=== PATIENT | female | born 1975 ===

== ENCOUNTER 2017-06-02 12:59 | Inpatient (IN) | payer OTHER ==
[2017-06-02 13:11] VITALS: BMI 46.6
[2017-06-02] MEDS ORDERED: Sodium Chloride 0.9% 500 ML IV ONE (13:50)
--- NOTE | 2017-06-02 14:19 | RAD ---
Chest x-ray two views History: Cough. Comparison: None available. Findings: Rounded somewhat masslike opacity in the right infrahilar region which may represent focal infiltrate however underlying lesion cannot entirely be excluded. Posttreatment interval followup would be helpful to ensure resolution. Diffuse increased interstitial lung markings which may represent underlying infiltrate and or edema. Few scattered nodular densities in the mid to lower lung zones bilaterally. Mild cardiomegaly. Tortuous aorta. Right hilar prominence. Impression: Rounded somewhat masslike opacity in the right infrahilar region which may represent focal infiltrate however underlying lesion cannot entirely be excluded. Posttreatment interval followup would be helpful to ensure resolution. Diffuse increased interstitial lung markings which may represent underlying infiltrate and or edema. Few scattered nodular densities in the mid to lower lung zones bilaterally. Mild cardiomegaly. Tortuous aorta. Right hilar prominence.
[2017-06-02 14:34] LABS: BASO % 0.4 % (0.0-2.0); EOS # 0.1 K/uL (0.0-0.7); EOS % 1.5 % (0.0-4.0); HEMOGLOBIN 10.7 g/dL (11.0-16.0); LYMPH # 0.5 K/uL (1.0-4.3); LYMPH % 7.2 % (20.0-40.0); MEAN CELL VOLUME 79.3 fL (81.0-99.0); MEAN CORPUSCULAR HEMOGLOBIN 25.4 pg (27.0-31.0); MEAN CORPUSCULAR HGB CONC 32.1 g/dL (33.0-37.0); MEAN PLATELET VOLUME 10.6 fL (7.2-11.7); MONO # 0.5 K/uL (0.0-0.8); MONO % 6.4 % (0.0-10.0); NEUT # 6.3 K/uL (1.8-7.0); NEUT % 84.5 % (50.0-75.0); PLATELET COUNT 156 K/uL (130-400); RBC 4.21 Mil/uL (3.80-5.20); WHITE BLOOD COUNT 7.4 K/uL (4.8-10.8)
[2017-06-02 14:47] LABS: ALB/GLOB RATIO 1.1 (1.0-2.1); ALBUMIN 3.9 g/dL (3.5-5.0); ALT/SGPT 17 U/L (9-52); AST/SGOT 26 U/L (14-36); BLOOD UREA NITROGEN 9 mg/dL (7-17); CALCIUM 8.5 mg/dl (8.6-10.4); GFR AFRICAN-AMERICAN > 60; GFR NON-AFRICAN AMERICAN > 60
[2017-06-02 14:58] LABS: B-TYPE NATRIURETIC PEPTIDE 2550 pg/mL (0-450)
[2017-06-02 15:25] LABS: BANDS 12 % (0-2); BASOPHIL 1 % (0-2); EOSINOPHIL 3 % (0-4); LYMPHOCYTE 7 % (20-40); TOTAL CELLS COUNTED 100
[2017-06-02 15:26] LABS: ANISOCYTOSIS SLIGHT; HYPOCHROMIC SLIGHT; LARGE PLATELETS PRESENT; MONOCYTE 5 % (0-10); NEUTROPHIL 72 % (50-75); PLATELET ESTIMATE NORMAL (NORMAL); POIKILOCYTOSIS SLIGHT
[2017-06-02 16:19] LABS: SQUAMOUS EPITHIAL 6 /hpf (0-5); URINE BACTERIA RARE (<OCC); URINE BILIRUBIN NEGATIVE (NEGATIVE); URINE BLOOD 1+ (NEGATIVE); URINE CLARITY Hazy (Clear); URINE COLOR Straw (YELLOW); URINE GLUCOSE (UA) NORMAL (Normal); URINE LEUKOCYTE ESTERASE 2+ Leu/uL (Negative); URINE PROTEIN NEGATIVE (NEGATIVE); URINE UROBILINOGEN NORMAL mg/dL (0.2-1.0)
[2017-06-02 16:23] LABS: HCG,QUALITATIVE URINE NEGATIVE (NEGATIVE)
--- NOTE | 2017-06-02 17:58 | CT ---
PROCEDURE: CT scan chest dated 06/02/2017 HISTORY: Fever & cough. PNA vs. CHF vs. mass on CXR. COMPARISON: Comparison made with prior chest radiograph obtained earlier same day TECHNIQUE: Contiguous axial images were obtained through the chest without intravenous contrast enhancement. Sagittal and coronal reconstructions were performed. Radiation dose (DLP): 912.56 mGy-cm. This CT exam was performed using one or more of the following dose reduction techniques: Automated exposure control, adjustment of the mA and/or kV according to patient size, and/or use of iterative reconstruction technique. FINDINGS: LUNGS: The current study reveals diffuse ground-glass opacities with increased interstitial markings likely representing pulmonary edema. There is a localized masslike density in the medial aspect right middle lobe of bordering abutting the right cardiac border is felt to represent on localized atelectasis and presumably accounts for previously noted masslike opacity seen on recent chest radiograph. Follow-up CT scan at interval recommended to assess resolution as the possibility of a small underlying mass lesion cannot be completely excluded. MEDIASTINUM: Heart is enlarged. No significant pericardial effusion. There is mild dilatation of the ascending thoracic aorta measuring nearly 3.9 cm in transverse dimension. Descending thoracic aorta measures approximately 2.3 cm. Pulmonary trunk measures approximately 3.47 cm. There does appear to be multiple of mediastinal lymph nodes which are poorly defined on and are nonspecific. Evaluation for hilar adenopathy is limited due to the lack of circulating intravenous contrast material. Central airways are midline and patent. No large central endoluminal lesions . There is a small hiatal hernia with mild localize wall thickening of the distal esophagus likely secondary to protrusion gastric mucosa. Possibility of esophagitis not excluded. PLEURA: No evidence of pleural effusion or pneumothorax. BONES: Minor multilevel degenerative spondylosis of the thoracic spine. There are no acute compression fractures no retropulsed fragments UPPER ABDOMEN: There is a small radiopaque density adjacent to the anterior superior margin of the surface of the liver that could represent a metallic clip ; clinical correlation recommended. The remaining visualized upper abdominal structures otherwise appear grossly unremarkable. OTHER FINDINGS: None. IMPRESSION: Findings consistent with pulmonary edema/ CHF. Masslike density in the medial aspect right middle lobe region probably represents chronic atelectasis. Follow-up CT scan at interval recommended to assess resolution as the possibility of underlying mass lesion cannot be completely excluded. Cardiomegaly.
[2017-06-02] MEDS ORDERED: cefTRIAXone IV 1 gm in Dextros 50 ML IVPB ONE ×2 (18:22→18:47)
[2017-06-02] MEDS ORDERED: Azithromycin 500mg/250ML NS 500 MG/250 ML BAG IVPB STA (18:23)
--- NOTE | 2017-06-02 18:46 | C.PDOC ---
Time Seen by Provider: 06/02/17 13:33 Chief Complaint (Nursing): Flu-like Symptoms History Per: Patient, Family Onset/Duration Of Symptoms: Days (1) Current Symptoms Are (Timing): Still Present Associated Symptoms: Fever, Sore Throat, Cough, Myalgias Severity: Moderate Additional History Per: Prior Records Past Medical History Reviewed: Historical Data, Nursing Documentation, Vital Signs Vital Signs: Last Vital Signs Temp 99.2 F 06/02/17 18:20 Pulse 76 06/02/17 18:20 Resp 20 06/02/17 18:20 BP 103/65 06/02/17 18:20 Pulse Ox 96 06/02/17 18:20 - Medical History Other PMH: "Heart problem after having a baby" Surgical History: Tonsillectomy Family History: States: Unknown Family Hx - Social History Hx Tobacco Use: No Hx Alcohol Use: No Hx Substance Use: No - Immunization History Hx Tetanus Toxoid Vaccination: No Hx Influenza Vaccination: No Hx Pneumococcal Vaccination: No Review Of Systems Except As Marked, All Systems Reviewed And Found Negative. Constitutional: Positive for: Fever, Weakness ENT: Positive for: Throat Pain Cardiovascular: Positive for: Chest Pain Respiratory: Positive for: Cough, Shortness of Breath. Negative for: Hemoptysis Gastrointestinal: Negative for: Abdominal Pain Genitourinary: Negative for: Dysuria Musculoskeletal: Negative for: Neck Pain Skin: Negative for: Rash Neurological: Negative for: Weakness, Numbness, Seizures, Altered Mental Status Physical Exam - Physical Exam Appears: No Acute Distress, Other (Uncomfortable) Skin: Normal Color, Warm, Dry Head: Atraumatic, Normacephalic Eye(s): bilateral: PERRL, EOMI Throat: Erythema, No Exudate, No Drooling, No Mass Neck: Normal ROM, Supple Cardiovascular: Rhythm Regular, Murmur Respiratory: No Accessory Muscle Use, Rales (at bases) Gastrointestinal/Abdominal: Soft, No Tenderness Back: No CVA Tenderness Extremity: Normal ROM, Pedal Edema, No Calf Tenderness Neurological/Psych: Oriented x3, Normal Speech, Normal Motor, Normal Sensation ED Course And Treatment - Laboratory Results Result Diagrams: 06/02/17 14:30 06/02/17 14:30 Lab Interpretation: Abnormal Interpretation Of Abnormal: Bandemia. Positive Flu A. Elevated BNP. ECG: Interpreted By Me, Viewed By Me ECG Rhythm: Sinus Rhythm, Nonspecific Changes ECG Interpretation: Abnormal Rate From EC O2 Sat by Pulse Oximetry: 96 Pulse Ox Interpretation: Normal - Radiology CXR: Viewed By Me, Read By Radiologist CXR Interpretation: Yes: Infiltrates (?), Cardiomegaly - CT Scan/US CT of chest Other Rad Studies (CT/US): Read By Radiologist, Radiology Report Reviewed CT/US Interpretation: IMPRESSION: Findings consistent with pulmonary edema/ CHF. Masslike density in the medial aspect right middle lobe region probably represents chronic atelectasis. Follow-up CT scan at interval recommended to assess resolution as the possibility of underlying mass lesion cannot be completely excluded. Cardiomegaly. Progress - Interventions Interventions:: Observation, Intravenous fluid, Oxygen - Medications Administered Oral: Acetaminophen, NSAID Intravenous: Other (Abx) - Data Reviewed Data Reviewed: Lab, Diagnostic imaging, EKG, Old records - Patient Status Patient status: Partially improved - Continuity of Care Discussed patient case with:: Patient, Family-HIPPA compliant, ED Nurse, Covering for PMD - Patient Plan Patient Plan: Admission, Telemetry Disposition Discussed With : Suad Smart Comment: She accepted pt on hospitalist service. Doctor Will See Patient In The: Hospital Counseled Patient/Family Regarding: Studies Performed, Diagnosis - Disposition Disposition: HOSPITALIZED Disposition Time: 18:49 Condition: GUARDED - Clinical Impression Clinical Impression: Influenza A, Pulmonary edema
--- NOTE | 2017-06-02 19:16 | CP.PCM.HP ---
<Omar Santiago - Last Filed: 06/02/17 20:28> History of Present Illness - History of Present Illness History of Present Illness: No advanced directives Healthcare proxy: Sky Khan () [phone] PGY-1 H&P for Dr. Smart CC: Fever, malaise, dyspnea This is a 42 year old female with PMHx cardiomegaly s/p 10 years ago who presents with fevers, malaise, and shortness of breath. Patient states that this began yesterday as she was picking up her daughter from school. At the time , she just felt unwell. However, at 1 AM this morning, the patient woke up with fever, sore throat, and shortness of breath. Patient tried using an albuterol inhaler once without any relief. Patient has also tried Motrin without relief of fever. Patient complaining of diaphoresis as well. Patient is able to walk 5 blocks before getting short of breath and sleeps with 2 pillows at night. Of note, patient's was sick early this week with similar symptoms. Patient did not get the flu shot this year. PMHx: cardiomegaly s/p PSHx: Fibroidectomy, hernia repair, tonsillectomy Allergies: NKDA Social: Denies tobacco, alcohol, drugs. Lives with , daughter, and grandson. Family Hx: Father passed at age 72. Mother passed at young age of uterine cancer. PMD: Dr. Lora Oden meds: Ventolin inhaler, Theraflu syrup Present on Admission - Present on Admission Any Indicators Present on Admission: No Review of Systems - Constitutional Constitutional: Chills, Fever - EENT Eyes: absent: Change in Vision Ears: absent: Decreased Hearing Nose/Mouth/Throat: absent: Nasal Congestion - Cardiovascular Cardiovascular: Chest Pain (pleuritic) - Respiratory Respiratory: Cough (dry), Dyspnea - Gastrointestinal Gastrointestinal: Abdominal Pain (with movement). absent: Constipation, Diarrhea, Nausea, Vomiting - Genitourinary Genitourinary: Other (itching with urination). absent: Dysuria - Musculoskeletal Musculoskeletal: absent: Back Pain - Integumentary Integumentary: Other (diaphoresis). absent: Rash - Neurological Neurological: absent: Dizziness - Psychiatric Psychiatric: absent: Anxiety - Endocrine Endocrine: Fatigue Past Patient History - Past Social History Smoking Status: Never Smoked - PSYCHIATRIC Hx Substance Use: No - SURGICAL HISTORY Hx Tonsillectomy: Yes - ANESTHESIA Hx Anesthesia: Yes Hx Anesthesia Reactions: No Meds Allergies/Adverse Reactions: Allergies Allergy/AdvReac Type Severity Reaction Status Date / Time No Known Allergies Allergy Verified 06/02/17 13:11 Physical Exam - Constitutional Appears: Other (ill appearing with diaphoresis) - Head Exam Head Exam: ATRAUMATIC, NORMOCEPHALIC - Eye Exam Eye Exam: EOMI, PERRL - ENT Exam ENT Exam: Mucous Membranes Moist - Respiratory Exam Respiratory Exam: Rales (bilateral), Wheezes (anterior wheezing). absent: Rhonchi Additional comments: Coarse breath sounds bilaterally - Cardiovascular Exam Cardiovascular Exam: Tachycardia, REGULAR RHYTHM, +S1, +S2, Systolic Murmur ( loudest over pulmonic region). absent: JVD Additional comments: Hepatojugular reflex - GI/Abdominal Exam GI & Abdominal Exam: Hernia (reducible umbilical hernia), Normal Bowel Sounds, Soft. absent: Distended, Tenderness Additional comments: obese body habitus - Extremities Exam Extremities exam: Positive for: pedal edema (trace bilateral non-pitting) - Neurological Exam Neurological exam: Alert, Oriented x3 - Psychiatric Exam Psychiatric exam: Normal Affect, Normal Mood - Skin Skin Exam: Diaphoretic, Warm Results - Vital Signs Recent Vital Signs: Last Vital Signs Temp 99.2 F 06/02/17 18:20 Pulse 76 06/02/17 18:20 Resp 20 06/02/17 18:20 BP 103/65 06/02/17 18:20 Pulse Ox 96 06/02/17 18:50 - Labs Result Diagrams: 06/02/17 14:30 06/02/17 14:30 Labs: Laboratory Results - last 24 hr 06/02/17 06/02/17 06/02/17 13:50 14:30 14:30 WBC 7.4 RBC 4.21 Hgb 10.7 L Hct 33.4 L MCV 79.3 L MCH 25.4 L MCHC 32.1 L RDW 14.0 Plt Count 156 MPV 10.6 Neut % (Auto) 84.5 H Lymph % (Auto) 7.2 L [place] % (Auto) 6.4 Eos % (Auto) 1.5 Baso % (Auto) 0.4 Neut # (Auto) 6.3 Lymph # (Auto) 0.5 L [place] # (Auto) 0.5 Eos # (Auto) 0.1 Baso # (Auto) 0.0 Neutrophils % (Manual) 72 Band Neutrophils % 12 H* Lymphocytes % (Manual) 7 L Monocytes % (Manual) 5 Eosinophils % (Manual) 3 Basophils % (Manual) 1 Platelet Estimate Normal Large Platelets Present Hypochromasia (manual) Slight Poikilocytosis (manual Slight Anisocytosis (manual) Slight Sodium 139 Potassium 3.8 Chloride 103 Carbon Dioxide 22 Anion Gap 18 BUN 9 Creatinine 0.8 Est GFR ( Amer) > 60 Est GFR (Non-Af Amer) > 60 Random Glucose 90 Calcium 8.5 L Total Bilirubin 0.7 AST 26 ALT 17 Alkaline Phosphatase 79 Troponin I 0.0610 NT-Pro-B Natriuret Pep 2550 H Total Protein 7.6 Albumin 3.9 Globulin 3.7 Albumin/Globulin Ratio 1.1 Urine Color Urine Clarity Urine pH Ur Specific [place] Urine Protein Urine Glucose (UA) Urine Ketones Urine Blood Urine Nitrate Urine Bilirubin Urine Urobilinogen Ur Leukocyte Esterase Urine WBC (Auto) Urine RBC (Auto) Ur Squamous Epith Cells Urine Bacteria Urine HCG, Qual Influenza Typ A,B (EIA) Pos for influenza a H 06/02/17 15:37 WBC RBC Hgb Hct MCV MCH MCHC RDW Plt Count MPV Neut % (Auto) Lymph % (Auto) [place] % (Auto) Eos % (Auto) Baso % (Auto) Neut # (Auto) Lymph # (Auto) [place] # (Auto) Eos # (Auto) Baso # (Auto) Neutrophils % (Manual) Band Neutrophils % Lymphocytes % (Manual) Monocytes % (Manual) Eosinophils % (Manual) Basophils % (Manual) Platelet Estimate Large Platelets Hypochromasia (manual) Poikilocytosis (manual Anisocytosis (manual) Sodium Potassium Chloride Carbon Dioxide Anion Gap BUN Creatinine Est GFR ( Amer) Est GFR (Non-Af Amer) Random Glucose Calcium Total Bilirubin AST ALT Alkaline Phosphatase Troponin I NT-Pro-B Natriuret Pep Total Protein Albumin Globulin Albumin/Globulin Ratio Urine Color Straw Urine Clarity Hazy Urine pH 5.0 Ur Specific [place] 1.012 Urine Protein Negative Urine Glucose (UA) Normal Urine Ketones Negative Urine Blood 1+ H Urine Nitrate Negative Urine Bilirubin Negative Urine Urobilinogen Normal Ur Leukocyte Esterase 2+ H Urine WBC (Auto) 13 H Urine RBC (Auto) 2 Ur Squamous Epith Cells 6 H Urine Bacteria Rare Urine HCG, Qual Negative Influenza Typ A,B (EIA) Assessment & Plan - Assessment and Plan (Free Text) Plan: Cardiomegaly with possible CHF considering pulmonary edema on CT imaging EKG shows sinus tachycardia with ST depressions in V4-V6 with T wave inversions f/u LESLEY x2 along with EKG f/u echo f/u lipid panel f/u hemoglobin A1c f/u thyroid studies Cardiology Consult Dr. Byrd, help appreciated Critical Care Consult, Dr. Aguirre, help appreciated Patient given 10 mg IV Lasix Influenza Flu positive Received one dose of Tamiflu in ED Tamiflu 75 mg PO BID Isolation ordered Pneumonia Chest CT: * Findings consistent with pulmonary edema/ CHF. Mass-like density in the medial aspect right middle lobe region probably represents chronic atelectasis. Follow-up CT scan at interval recommended to assess resolution as the possibility of underlying mass lesion cannot be completely excluded. Given Azithromycin and Rocephin in the ED Vancomycin 1 gm Q12H Zosyn 3.375 gm Q6H f/u blood cultures f/u procalcitonin Duoneb Q4 prn O2 via cannula ID consult, Dr. Baez, help appreciated Pulm consult, Dr. Cook, help appreciated UTI 2+ leuk esterase and symptomatic f/u urine cultures Vancomycin 1 gm Q12H Zosyn 3.375 gm Q6H ID consult, Dr. Baez, help appreciated Prophylaxis Heart Healthy Diet with fluid restriction Heparin SC Q12H Discussed with Dr. Berry Santiago PGY-1 <Suad Smart V - Last Filed: 06/03/17 23:19> Results - Vital Signs Recent Vital Signs: Last Vital Signs Temp 98.9 F 06/03/17 21:17 Pulse 78 06/03/17 16:00 Resp 20 06/03/17 15:00 BP 135/77 06/03/17 15:00 Pulse Ox 96 06/03/17 15:00 - Labs Result Diagrams: 06/03/17 07:20 06/03/17 07:20 Labs: Laboratory Results - last 24 hr 06/03/17 06/03/17 06/03/17 02:51 07:20 07:20 WBC RBC Hgb Hct MCV MCH MCHC RDW Plt Count MPV Neut % (Auto) Lymph % (Auto) [place] % (Auto) Eos % (Auto) Baso % (Auto) Neut # (Auto) Lymph # (Auto) [place] # (Auto) Eos # (Auto) Baso # (Auto) Sodium 139 Potassium 3.6 Chloride 105 Carbon Dioxide 21 L Anion Gap 17 BUN 9 Creatinine 0.6 L Est GFR ( Amer) > 60 Est GFR (Non-Af Amer) > 60 Random Glucose 83 Hemoglobin A1c 5.8 Calcium 8.1 L Phosphorus 2.6 Magnesium 1.7 Iron TIBC % Saturation Ferritin Total Bilirubin 0.6 AST 29 ALT 24 Alkaline Phosphatase 68 Total Creatine Kinase 121 CK-MB (Mass) 3.24 Troponin I 0.0770 NT-Pro-B Natriuret Pep Total Protein 6.9 Albumin 3.5 Globulin 3.4 Albumin/Globulin Ratio 1.0 Triglycerides 53 Cholesterol 117 LDL Cholesterol Direct 63 HDL Cholesterol 39 Procalcitonin Free T4 TSH 3rd Generation 0.91 06/03/17 06/03/17 06/03/17 07:20 07:20 07:20 WBC 6.4 RBC 3.86 Hgb 10.0 L Hct 30.5 L MCV 79.1 L MCH 26.0 L MCHC 32.9 L RDW 14.0 Plt Count 140 MPV 11.0 Neut % (Auto) 76.3 H Lymph % (Auto) 13.7 L [place] % (Auto) 9.1 Eos % (Auto) 0.3 Baso % (Auto) 0.6 Neut # (Auto) 4.9 Lymph # (Auto) 0.9 L [place] # (Auto) 0.6 Eos # (Auto) 0.0 Baso # (Auto) 0.0 Sodium Potassium Chloride Carbon Dioxide Anion Gap BUN Creatinine Est GFR ( Amer) Est GFR (Non-Af Amer) Random Glucose Hemoglobin A1c Calcium Phosphorus Magnesium Iron TIBC % Saturation Ferritin Total Bilirubin AST ALT Alkaline Phosphatase Total Creatine Kinase CK-MB (Mass) Troponin I NT-Pro-B Natriuret Pep Total Protein Albumin Globulin Albumin/Globulin Ratio Triglycerides Cholesterol LDL Cholesterol Direct HDL Cholesterol Procalcitonin 0.05 L Free T4 1.21 TSH 3rd Generation 06/03/17 06/03/17 06/03/17 13:32 19:32 19:32 WBC RBC Hgb Hct MCV MCH MCHC RDW Plt Count MPV Neut % (Auto) Lymph % (Auto) [place] % (Auto) Eos % (Auto) Baso % (Auto) Neut # (Auto) Lymph # (Auto) [place] # (Auto) Eos # (Auto) Baso # (Auto) Sodium Potassium Chloride Carbon Dioxide Anion Gap BUN Creatinine Est GFR ( Amer) Est GFR (Non-Af Amer) Random Glucose Hemoglobin A1c Calcium Phosphorus Magnesium Iron 10 L TIBC 299 % Saturation 3 L 3 L Ferritin Total Bilirubin AST ALT Alkaline Phosphatase Total Creatine Kinase CK-MB (Mass) Troponin I NT-Pro-B Natriuret Pep 1580 H Total Protein Albumin Globulin Albumin/Globulin Ratio Triglycerides Cholesterol LDL Cholesterol Direct HDL Cholesterol Procalcitonin Free T4 TSH 3rd Generation 06/03/17 19:32 WBC RBC Hgb Hct MCV MCH MCHC RDW Plt Count MPV Neut % (Auto) Lymph % (Auto) [place] % (Auto) Eos % (Auto) Baso % (Auto) Neut # (Auto) Lymph # (Auto) [place] # (Auto) Eos # (Auto) Baso # (Auto) Sodium Potassium Chloride Carbon Dioxide Anion Gap BUN Creatinine Est GFR ( Amer) Est GFR (Non-Af Amer) Random Glucose Hemoglobin A1c Calcium Phosphorus Magnesium Iron TIBC % Saturation Ferritin 63.0 Total Bilirubin AST ALT Alkaline Phosphatase Total Creatine Kinase CK-MB (Mass) Troponin I NT-Pro-B Natriuret Pep Total Protein Albumin Globulin Albumin/Globulin Ratio Triglycerides Cholesterol LDL Cholesterol Direct HDL Cholesterol Procalcitonin Free T4 TSH 3rd Generation Attending/Attestation - Attestation I have personally seen and examined this patient.: Yes I have fully participated in the care of the patient.: Yes I have reviewed all pertinent clinical information: Yes Notes (Text): This is late computer entry for 06/02/17. Patient seen, examined and case discussed with day-time resident. Patient seen in Hallway Bed 9 in the Emergency Room at 6:24PM on 06/02/17 Patient reports sore throat, dry cough, feeling unwell, urinary dysuria, and reports shortness of breathe. Patient was diagnosed with murmur about 9 years ago during her last . Discussed with ED, patient had abnormal chest xray, ordered CT chest which revealed CHF/pulmonary edema. ICU came to evaluate the patient, stable for telemetry, help appreciated Admission orders discussed with resident. Assessment/Plan 1) Possible CHF Pulmonary edema * admit to telemetry * Cardiology Consult Dr. Byrd, help appreciated * Critical Care Consult, Dr. Aguirre, help appreciated * Discussed, stable for telemetry, given small dose of Lasix * EKG shows sinus tachycardia with ST depressions in V4-V6 with T wave inversions * f/u LESLEY x2 along with EKG * f/u echo * f/u lipid panel * f/u hemoglobin A1c * f/u thyroid studies * Monitor intake and output * daily weight * unable to given blood pressure medications given low normal blood pressure 2) Influenza A * Infectious Disease (Dr. Baez), help appreciated * Given Azithromycin and Rocephin in the ED * Flu positive * Droplet precautions * Tamiflu 75mg PO BID * start Vancomycin 1 gm Q12H * start Zosyn 3.375 gm Q6H * f/u blood cultures * f/u procalcitonin * Duoneb Q4 prn * O2 via cannula 3) Pneumonia * ID consult, Dr. Baez, help appreciated * Pulm consult, Dr. Cook, help appreciated * Chest CT: Findings consistent with pulmonary edema/ CHF. Mass-like density in the medial aspect right middle lobe region probably represents chronic atelectasis. Follow-up CT scan at interval recommended to assess resolution as the possibility of underlying mass lesion cannot be completely excluded. * Given Azithromycin and Rocephin in the ED * Vancomycin 1 gm Q12H and Zosyn 3.375 gm Q6H * Duoneb Q4 prn * O2 via cannula 3) Urinary Tract Infection * Infectious disease consult, Dr. Baez, help appreciated * 2+ leuk esterase and symptomatic * f/u urine cultures * Vancomycin 1 gm Q12H * Zosyn 3.375 gm Q6H 4) Prophylaxis * Heart Healthy Diet with fluid restriction * Heparin SC Q12H * monitor on telemetry
[2017-06-02 19:17] LABS: ABG ALLEN TEST PO; ARTERIAL BLOOD GAS HCO3 23.9 mmol/L (21-28); ARTERIAL BLOOD GAS O2 SAT 99.6 % (95-98); ARTERIAL BLOOD GAS PCO2 26 mm/Hg (35-45); ARTERIAL BLOOD GAS PO2 106 mm/Hg (80-100); ARTERIAL BLOOD GAS TCO2 21.1 mmol/L (22-28)
[2017-06-02] MEDS ORDERED: Piperacillin/Tazobact 3.375 GM in Sodium Chloride 100 ML IVPB SCH (19:30)
[2017-06-02] MEDS ORDERED: Albuterol-Ipratrop 3 mg / 0.5 (3 ml) UD INH PRN (20:26)
--- NOTE | 2017-06-02 20:44 | CP.CCUPN ---
CCU Subjective - Physician Review Events Since Last Encounter (Free Text): 06/02/17 20:26 The Patient was seen and examined at the bedside, Medical records reviewed, and management issues were discussed and formulated with the house staff. I have reviewed all the relevant clinical, laboratory, hemodynamic, radiographic data and medications 42 Y/O F with PMHx of Asthma and cardiomegaly s/p Who presented to the ER with complaint of fevers, malaise, and shortness of breath. Patient states that this began yesterday as she was picking up her daughter from school. Patient tried using an albuterol inhaler once without any relief. In ther ER Patient AAOx3, Comfortable, in no distress. CXR and CT scan significant for Cardiomegaly and ?bibasilar Infiltrates (likely pulmonary edema) EKG with sinus tachycardia with ST depressions in V4-V6 with T wave inversions , Patient is chest pain free and the first Trop is negative She tested positive for Infulenza A and was started on Tamiflu Patient also given 10 mg IV Lasix CCU Objective - Vital Signs / Intake & Output Vital Signs (Last 4 hours): Vital Signs Temp Pulse Resp BP Pulse Ox 06/02/17 19:57 70 18 110/64 98 06/02/17 19:52 105/40 L 06/02/17 19:18 99.2 F 69 22 105/40 L 100 06/02/17 18:50 96 06/02/17 18:20 99.2 F 76 20 103/65 96 Intake and Output (Last 8hrs): Intake & Output 06/02/17 06/02/17 06/02/17 06:59 14:59 22:59 Weight 247 lb - Physical Exam Head: Positive for: Atraumatic, Normocephalic Pupils: Positive for: PERRL Extroacular Muscles: Positive for: EOMI Conjunctiva: Positive for: Normal Mouth: Positive for: Moist Mucous Membranes Pharnyx: Positive for: Normal Nose (Internal): Positive for: Normal Inspection Neck: Positive for: Normal Range of Motion, Trachea Midline. Negative for: Meningeal Signs, MIDLINE TENDERNESS, Paraspinal Tenderness, JVD, Lymphadenopathy , Bruit, Other Respiratory/Chest: Positive for: Clear to Auscultation, Rales. Negative for: Respiratory Distress, Accessory Muscle Use, Wheezes, Decreased Breath Sounds, Retracting, Rhonchi, Tachypneic, Tender to Palpation Cardiovascular: Positive for: Regular Rate and Rhythm, Normal S1, S2, Peripheal Pulses Present. Negative for: Murmurs, Irregular Rhythm, Tachycardic, Bradycardic Abdomen: Positive for: Normal Bowel Sounds. Negative for: Tenderness, Distention, Peritoneal Signs Neurological: Positive for: GCS=15, CN II-XII Intact, Speech Normal, Motor Func Grossly Intact. Negative for: Normal Sensory Function Psychiatric: Positive for: Alert, Oriented x 3, Normal Insight, Normal Concentration - Medications Active Medications: Active Medications Generic Name Dose Route Start Last Admin Trade Name Freq PRN Reason Stop Dose Admin Acetaminophen 650 mg 06/02/17 19:16 Tylenol 325mg Tab PO Q6 PRN Fever >100.4 F Piperacillin Sod/Tazobactam Sod 3.375 gm in 50 mls @ 100 mls/hr 06/02/17 20: 00 Zosyn 3.375 Gm Iv Premix IVPB Q6H DIEGO Vancomycin/Sodium Chloride 1 gm in 200 mls @ 133 mls/hr 06/02/17 21:00 Vancomycin 1 Gm/Ns 200 Ml IVPB 06/07/17 21:01 Q12H DIEGO Oseltamivir Phosphate 75 mg 06/03/17 10:00 Tamiflu Cap PO 06/07/17 19:20 BID DIEGO Protocol - Patient Studies Lab Studies: Lab Studies 06/02/17 06/02/17 06/02/17 Range/Units 19:13 15:37 14:30 WBC (4.8-10.8) K/uL RBC (3.80-5.20) Mil/uL Hgb (11.0-16.0) g/dL Hct (34.0-47.0) % MCV (81.0-99.0) fL MCH (27.0-31.0) pg MCHC (33.0-37.0) g/dL RDW (11.5-14.5) % Plt Count (130-400) K/uL MPV (7.2-11.7) fL Neut % (Auto) (50.0-75.0) % Lymph % (Auto) (20.0-40.0) % [place] % (Auto) (0.0-10.0) % Eos % (Auto) (0.0-4.0) % Baso % (Auto) (0.0-2.0) % Neut # (Auto) (1.8-7.0) K/uL Lymph # (Auto) (1.0-4.3) K/uL [place] # (Auto) (0.0-0.8) K/uL Eos # (Auto) (0.0-0.7) K/uL Baso # (Auto) (0.0-0.2) K/uL Neutrophils % (Manual) (50-75) % Band Neutrophils % (0-2) % Lymphocytes % (Manual) (20-40) % Monocytes % (Manual) (0-10) % Eosinophils % (Manual) (0-4) % Basophils % (Manual) (0-2) % Platelet Estimate (NORMAL) Large Platelets Hypochromasia (manual) Poikilocytosis (manual Anisocytosis (manual) Puncture Site Lr pCO2 26 L (35-45) mm/Hg pO2 106 H (80-100) mm/Hg HCO3 23.9 (21-28) mmol/L ABG pH 7.50 H (7.35-7.45) ABG Total CO2 21.1 L (22-28) mmol/L ABG O2 Saturation 99.6 H (95-98) % ABG Base Excess -1.4 (-2.0-3.0) mmol/L Farrukh Test Po ABG Potassium 3.0 L (3.6-5.2) mmol/L A-a O2 Difference 90.0 mm/Hg Respiratory Index 0.8 Glucose 97 (65-105) mg/dl Lactate 0.6 L (0.7-2.1) mmol/L Liter Flow 3.0 FiO2 32.0 % Sodium 140.0 139 (132-148) mmol/L Potassium 3.8 (3.6-5.2) mmol/L Chloride 109.0 H 103 (98-107) mmol/L Carbon Dioxide 22 (22-30) mmol/L Anion Gap 18 (10-20) BUN 9 (7-17) mg/dL Creatinine 0.8 (0.7-1.2) mg/dL Est GFR ( Amer) > 60 Est GFR (Non-Af Amer) > 60 Random Glucose 90 (65-105) mg/dL Calcium 8.5 L (8.6-10.4) mg/dl Total Bilirubin 0.7 (0.2-1.3) mg/dL AST 26 (14-36) U/L ALT 17 (9-52) U/L Alkaline Phosphatase 79 (38-126) U/L Troponin I 0.0610 (0.00-0.120) ng/mL NT-Pro-B Natriuret Pep 2550 H (0-450) pg/mL Total Protein 7.6 (6.3-8.3) g/dL Albumin 3.9 (3.5-5.0) g/dL Globulin 3.7 (2.2-3.9) gm/dL Albumin/Globulin Ratio 1.1 (1.0-2.1) Arterial Blood Potassium 3.0 L (3.6-5.2) mmol/L Urine Color Straw (YELLOW) Urine Clarity Hazy (Clear) Urine pH 5.0 (5.0-8.0) Ur Specific Warren 1.012 (1.003-1.030) Urine Protein Negative (NEGATIVE) mg/dL Urine Glucose (UA) Normal (Normal) mg/dL Urine Ketones Negative (NEGATIVE) mg/dL Urine Blood 1+ H (NEGATIVE) Urine Nitrate Negative (NEGATIVE) Urine Bilirubin Negative (NEGATIVE) Urine Urobilinogen Normal (0.2-1.0) mg/dL Ur Leukocyte Esterase 2+ H (Negative) Chasidy/uL Urine WBC (Auto) 13 H (0-5) /hpf Urine RBC (Auto) 2 (0-3) /hpf Ur Squamous Epith Cells 6 H (0-5) /hpf Urine Bacteria Rare (<OCC) Urine HCG, Qual Negative (NEGATIVE) Influenza Typ A,B (EIA) (NEGATIVE) 06/02/17 06/02/17 Range/Units 14:30 13:50 WBC 7.4 (4.8-10.8) K/uL RBC 4.21 (3.80-5.20) Mil/uL Hgb 10.7 L (11.0-16.0) g/dL Hct 33.4 L (34.0-47.0) % MCV 79.3 L (81.0-99.0) fL MCH 25.4 L (27.0-31.0) pg MCHC 32.1 L (33.0-37.0) g/dL RDW 14.0 (11.5-14.5) % Plt Count 156 (130-400) K/uL MPV 10.6 (7.2-11.7) fL Neut % (Auto) 84.5 H (50.0-75.0) % Lymph % (Auto) 7.2 L (20.0-40.0) % [place] % (Auto) 6.4 (0.0-10.0) % Eos % (Auto) 1.5 (0.0-4.0) % Baso % (Auto) 0.4 (0.0-2.0) % Neut # (Auto) 6.3 (1.8-7.0) K/uL Lymph # (Auto) 0.5 L (1.0-4.3) K/uL [place] # (Auto) 0.5 (0.0-0.8) K/uL Eos # (Auto) 0.1 (0.0-0.7) K/uL Baso # (Auto) 0.0 (0.0-0.2) K/uL Neutrophils % (Manual) 72 (50-75) % Band Neutrophils % 12 H* (0-2) % Lymphocytes % (Manual) 7 L (20-40) % Monocytes % (Manual) 5 (0-10) % Eosinophils % (Manual) 3 (0-4) % Basophils % (Manual) 1 (0-2) % Platelet Estimate Normal (NORMAL) Large Platelets Present Hypochromasia (manual) Slight Poikilocytosis (manual Slight Anisocytosis (manual) Slight Puncture Site pCO2 (35-45) mm/Hg pO2 (80-100) mm/Hg HCO3 (21-28) mmol/L ABG pH (7.35-7.45) ABG Total CO2 (22-28) mmol/L ABG O2 Saturation (95-98) % ABG Base Excess (-2.0-3.0) mmol/L Farrukh Test ABG Potassium (3.6-5.2) mmol/L A-a O2 Difference mm/Hg Respiratory Index Glucose (65-105) mg/dl Lactate (0.7-2.1) mmol/L Liter Flow FiO2 % Sodium (132-148) mmol/L Potassium (3.6-5.2) mmol/L Chloride (98-107) mmol/L Carbon Dioxide (22-30) mmol/L Anion Gap (10-20) BUN (7-17) mg/dL Creatinine (0.7-1.2) mg/dL Est GFR ( Amer) Est GFR (Non-Af Amer) Random Glucose (65-105) mg/dL Calcium (8.6-10.4) mg/dl Total Bilirubin (0.2-1.3) mg/dL AST (14-36) U/L ALT (9-52) U/L Alkaline Phosphatase (38-126) U/L Troponin I (0.00-0.120) ng/mL NT-Pro-B Natriuret Pep (0-450) pg/mL Total Protein (6.3-8.3) g/dL Albumin (3.5-5.0) g/dL Globulin (2.2-3.9) gm/dL Albumin/Globulin Ratio (1.0-2.1) Arterial Blood Potassium (3.6-5.2) mmol/L Urine Color (YELLOW) Urine Clarity (Clear) Urine pH (5.0-8.0) Ur Specific [place] (1.003-1.030) Urine Protein (NEGATIVE) mg/dL Urine Glucose (UA) (Normal) mg/dL Urine Ketones (NEGATIVE) mg/dL Urine Blood (NEGATIVE) Urine Nitrate (NEGATIVE) Urine Bilirubin (NEGATIVE) Urine Urobilinogen (0.2-1.0) mg/dL Ur Leukocyte Esterase (Negative) Chasidy/uL Urine WBC (Auto) (0-5) /hpf Urine RBC (Auto) (0-3) /hpf Ur Squamous Epith Cells (0-5) /hpf Urine Bacteria (<OCC) Urine HCG, Qual (NEGATIVE) Influenza Typ A,B (EIA) Pos for influenza a H (NEGATIVE) Laboratory Results - last 24 hr 06/02/17 06/02/17 06/02/17 13:50 14:30 14:30 WBC 7.4 RBC 4.21 Hgb 10.7 L Hct 33.4 L MCV 79.3 L MCH 25.4 L MCHC 32.1 L RDW 14.0 Plt Count 156 MPV 10.6 Neut % (Auto) 84.5 H Lymph % (Auto) 7.2 L [place] % (Auto) 6.4 Eos % (Auto) 1.5 Baso % (Auto) 0.4 Neut # (Auto) 6.3 Lymph # (Auto) 0.5 L [place] # (Auto) 0.5 Eos # (Auto) 0.1 Baso # (Auto) 0.0 Neutrophils % (Manual) 72 Band Neutrophils % 12 H* Lymphocytes % (Manual) 7 L Monocytes % (Manual) 5 Eosinophils % (Manual) 3 Basophils % (Manual) 1 Platelet Estimate Normal Large Platelets Present Hypochromasia (manual) Slight Poikilocytosis (manual Slight Anisocytosis (manual) Slight Puncture Site pCO2 pO2 HCO3 ABG pH ABG Total CO2 ABG O2 Saturation ABG Base Excess Farrukh Test ABG Potassium A-a O2 Difference Respiratory Index Glucose Lactate Liter Flow FiO2 Sodium 139 Potassium 3.8 Chloride 103 Carbon Dioxide 22 Anion Gap 18 BUN 9 Creatinine 0.8 Est GFR ( Amer) > 60 Est GFR (Non-Af Amer) > 60 Random Glucose 90 Calcium 8.5 L Total Bilirubin 0.7 AST 26 ALT 17 Alkaline Phosphatase 79 Troponin I 0.0610 NT-Pro-B Natriuret Pep 2550 H Total Protein 7.6 Albumin 3.9 Globulin 3.7 Albumin/Globulin Ratio 1.1 Arterial Blood Potassium Urine Color Urine Clarity Urine pH Ur Specific [place] Urine Protein Urine Glucose (UA) Urine Ketones Urine Blood Urine Nitrate Urine Bilirubin Urine Urobilinogen Ur Leukocyte Esterase Urine WBC (Auto) Urine RBC (Auto) Ur Squamous Epith Cells Urine Bacteria Urine HCG, Qual Influenza Typ A,B (EIA) Pos for influenza a H 06/02/17 06/02/17 15:37 19:13 WBC RBC Hgb Hct MCV MCH MCHC RDW Plt Count MPV Neut % (Auto) Lymph % (Auto) [place] % (Auto) Eos % (Auto) Baso % (Auto) Neut # (Auto) Lymph # (Auto) [place] # (Auto) Eos # (Auto) Baso # (Auto) Neutrophils % (Manual) Band Neutrophils % Lymphocytes % (Manual) Monocytes % (Manual) Eosinophils % (Manual) Basophils % (Manual) Platelet Estimate Large Platelets Hypochromasia (manual) Poikilocytosis (manual Anisocytosis (manual) Puncture Site Lr pCO2 26 L pO2 106 H HCO3 23.9 ABG pH 7.50 H ABG Total CO2 21.1 L ABG O2 Saturation 99.6 H ABG Base Excess -1.4 Farrukh Test Po ABG Potassium 3.0 L A-a O2 Difference 90.0 Respiratory Index 0.8 Glucose 97 Lactate 0.6 L Liter Flow 3.0 FiO2 32.0 Sodium 140.0 Potassium Chloride 109.0 H Carbon Dioxide Anion Gap BUN Creatinine Est GFR ( Amer) Est GFR (Non-Af Amer) Random Glucose Calcium Total Bilirubin AST ALT Alkaline Phosphatase Troponin I NT-Pro-B Natriuret Pep Total Protein Albumin Globulin Albumin/Globulin Ratio Arterial Blood Potassium 3.0 L Urine Color Straw Urine Clarity Hazy Urine pH 5.0 Ur Specific [place] 1.012 Urine Protein Negative Urine Glucose (UA) Normal Urine Ketones Negative Urine Blood 1+ H Urine Nitrate Negative Urine Bilirubin Negative Urine Urobilinogen Normal Ur Leukocyte Esterase 2+ H Urine WBC (Auto) 13 H Urine RBC (Auto) 2 Ur Squamous Epith Cells 6 H Urine Bacteria Rare Urine HCG, Qual Negative Influenza Typ A,B (EIA) EKG/Cardiology Studies: Cardiology / EKG Studies 06/02/17 13:15 EKG [ELECTROCARDIOGRAM] Stat Comment: Mode Of Transportation: BED Reason For Exam: cp 06/02/17 20:30 EKG [ELECTROCARDIOGRAM] Stat Comment: Mode Of Transportation: Reason For Exam: cardiomegaly. ST segment changes 06/03/17 02:30 EKG [ELECTROCARDIOGRAM] Stat Comment: Mode Of Transportation: Reason For Exam: cardiomegaly. ST segment changes Review of Systems - Constitutional Constitutional: Fever, Chills. absent: Weakness, Malaise - Cardiovascular Cardiovascular: Dyspnea on Exertion. absent: Chest Pain, Chest Pain at Rest, Chest Pain with Activity, Claudication, Diaphoresis, Edema - Respiratory Respiratory: Cough, Dyspnea, Dyspnea on Exertion, Pain on Inspiration, Chest Congestion, Excessive Mucous Production, Change in Mucous Color, Pain with Coughing. absent: Hemoptysis, Wheezing, Stridor - Gastrointestinal Gastrointestinal: absent: Abdominal Pain, Hematemesis, Melena, Nausea, Vomiting Critical Care Progress Note - Extremities/Vascular Does the Patient have a Central Venous Catheter?: No Does the Patient need a Central Venous Catheter?: No Does the Patient have a Bettencourt Catheter?: No Does the Patient need a Bettencourt Catheter?: No - Nutrition Nutrition: Nutrition Category Date Time Status Heart Healthy Diet [DIET] Diets 06/02/17 Dinner Active Assessment/Plan (1) Influenza A Current Visit: Yes Status: Acute (2) Pulmonary edema Current Visit: Yes Status: Acute - Assessment and Plan (Free Text) Assessment: Dx: Influenza A, Pulmonary edema, Abnormal EKG Patient currently hemodynamically stable, Adequate saturation No acute ST changes chest pain free Recommend admission to Telemetry AV Antibiotics with Azithromycin and Rocephin Tamiflu 75 mg PO BID Droplet Isolation Supplemental Oxygen PRN BIPAP Serial TROP ECHO Diuresis Telemetry Daily EKGs Daily weight, and I/Os Cardiology Evaluation
[2017-06-02 20:46] LABS: CK-MB 2.01 ng/mL (0.0-3.38); TROPONIN I 0.059 ng/mL (0.00-0.120)
[2017-06-02] MEDS ORDERED: Piperacillin/Tazobact 3.375 gm 100 ML IVPB ONE (21:13)
[2017-06-02] MEDS: Piperacill/Tazo 3.375gm in Dex 3.375 GM/50 ML BAG IVPB SCH (21:14)
[2017-06-02 22:50] LABS: VENOUS BLOOD GAS BASE EXCESS -5.4 mmol/L (0.0-2.0); VENOUS BLOOD GAS PCO2 34 mmHg (40-60); VENOUS BLOOD GAS PO2 24 mm/Hg (30-55); VENOUS BLOOD PH 7.36 (7.32-7.43)
[2017-06-03] MEDS: Vancomycin 1 gm/NS 200 ml 1 GM/200 ML BAG IVPB SCH ×3 (00:32→21:19)
[2017-06-03] MEDS: Piperacill/Tazo 3.375gm in Dex 3.375 GM/50 ML BAG IVPB SCH ×4 (02:26→19:23)
[2017-06-03 03:23] LABS: CK-MB 3.24 ng/mL (0.0-3.38); TROPONIN I 0.077 ng/mL (0.00-0.120)
--- NOTE | 2017-06-03 07:39 | CP.PCM.PN ---
<Lyn Beltran - Last Filed: 06/03/17 12:39> Subjective - Date & Time of Evaluation Date of Evaluation: 06/03/17 Time of Evaluation: 07:36 - Subjective Subjective: Progress Note Patient seen and examined at bedside. No acute events overnight. Tmax 102.8 on admission. This morning, patient has a fever of 100.9. Patient tested positive for flu and is on tamiflu. Patient denies fever, chills, nausea, vomiting, diarrhea, constipation. Objective - Vital Signs/Intake and Output Vital Signs (last 24 hours): Temp Pulse Resp BP Pulse Ox 100.9 F H 77 20 106/60 95 06/03/17 04:25 06/03/17 04:20 06/03/17 04:20 06/03/17 04:20 06/03/17 04:20 - Medications Medications: Current Medications Acetaminophen (Tylenol 325mg Tab) 650 mg PO Q6 PRN PRN Reason: Fever >100.4 F Last Admin: 06/03/17 04:25 Dose: 650 mg Albuterol/Ipratropium (Duoneb 3 Mg/0.5 Mg (3 Ml) Ud) 3 ml INH RQ4 PRN PRN Reason: Shortness of Breath Aspirin (Aspirin Chewable) 81 mg PO DAILY COUNTS INCLUDE 234 BEDS AT THE [facility] Heparin Sodium (Porcine) (Heparin) 5,000 units SC Q12H COUNTS INCLUDE 234 BEDS AT THE [facility] Last Admin: 06/03/17 06:42 Dose: 5,000 units Piperacillin Sod/Tazobactam Sod (Zosyn 3.375 Gm Iv Premix) 3.375 gm in 50 mls @ 100 mls/hr IVPB Q6H COUNTS INCLUDE 234 BEDS AT THE [facility] Last Admin: 06/03/17 02:26 Dose: 100 mls/hr Vancomycin/Sodium Chloride (Vancomycin 1 Gm/Ns 200 Ml) 1 gm in 200 mls @ 133 mls/hr IVPB Q12H COUNTS INCLUDE 234 BEDS AT THE [facility] Stop: 06/07/17 21:01 Last Admin: 06/03/17 00:32 Dose: 133 mls/hr Oseltamivir Phosphate (Tamiflu Cap) 75 mg PO BID DIEGO PRN Reason: Protocol Stop: 06/07/17 19:20 - Labs Labs: 06/02/17 14:30 06/02/17 14:30 - Additional Findings Additional findings: Constitutional Appears: Other (ill appearing with diaphoresis) - Head Exam Head Exam: ATRAUMATIC, NORMOCEPHALIC - Eye Exam Eye Exam: EOMI, PERRL - ENT Exam ENT Exam: Mucous Membranes Moist - Respiratory Exam Respiratory Exam: Rales (bilateral), Wheezes (anterior wheezing). absent: Rhonchi Additional comments: Coarse breath sounds bilaterally - Cardiovascular Exam Cardiovascular Exam: Tachycardia, REGULAR RHYTHM, +S1, +S2, Systolic Murmur ( loudest over pulmonic region). absent: JVD Additional comments: Hepatojugular reflex - GI/Abdominal Exam GI & Abdominal Exam: Hernia (reducible umbilical hernia), Normal Bowel Sounds, Soft. absent: Distended, Tenderness Additional comments: obese body habitus - Extremities Exam Extremities exam: Positive for: pedal edema - Neurological Exam Neurological exam: Alert, Oriented x3 - Psychiatric Exam Psychiatric exam: Normal Affect, Normal Mood - Skin Skin Exam: Diaphoretic, Warm Assessment and Plan - Assessment and Plan (Free Text) Assessment: Cardiomegaly with possible CHF considering pulmonary edema on CT imaging EKG shows sinus tachycardia with ST depressions in V4-V6 with T wave inversions LESLEY x2 negative, st depressions on ekg minimal f/u echo good lipid panel Hgb A1c 5.8 TSH .91, free T4 1.21 UA 2+ leukocyte esterase, negative nitrates, rare bacteria, pH 5.0 BNP 2550 on admission f/u afternoon BNP Cardiology Consult Dr. Byrd, help appreciated Critical Care Consult, Dr. Aguirre, help appreciated Patient given 10 mg IV Lasix Influenza influenza a positive droplet precautions Received one dose of Tamiflu in ED Tamiflu 75 mg PO BID Isolation ordered Pneumonia Chest CT: * Findings consistent with pulmonary edema/ CHF. Mass-like density in the medial aspect right middle lobe region probably represents chronic atelectasis. Follow-up CT scan at interval recommended to assess resolution as the possibility of underlying mass lesion cannot be completely excluded. Given Azithromycin and Rocephin in the ED Vancomycin 1 gm Q12H Zosyn 3.375 gm Q6H f/u blood cultures procalcitonin Duoneb Q4 prn O2 via cannula ID consult, Dr. Baez, help appreciated Pulm consult, Dr. Cook, help appreciated UTI 2+ leuk esterase and symptomatic f/u urine cultures Vancomycin 1 gm Q12H Zosyn 3.375 gm Q6H ID consult, Dr. Baez, help appreciated Prophylaxis Heart Healthy Diet with fluid restriction Heparin SC Q12H Discussed with Dr. Smart <Suad Smart V - Last Filed: 06/03/17 23:31> Objective - Vital Signs/Intake and Output Vital Signs (last 24 hours): Temp Pulse Resp BP Pulse Ox 98.9 F 78 20 135/77 96 06/03/17 21:17 06/03/17 16:00 06/03/17 15:00 06/03/17 15:00 06/03/17 15:00 Intake and Output: 06/03/17 06/04/17 18:59 06:59 Intake Total 700 570 Balance 700 570 - Medications Medications: Current Medications Acetaminophen (Tylenol 325mg Tab) 650 mg PO Q6 PRN PRN Reason: Fever >100.4 F Last Admin: 06/03/17 18:12 Dose: 650 mg Albuterol/Ipratropium (Duoneb 3 Mg/0.5 Mg (3 Ml) Ud) 3 ml INH RQ4 PRN PRN Reason: Shortness of Breath Aspirin (Aspirin Chewable) 81 mg PO DAILY COUNTS INCLUDE 234 BEDS AT THE [facility] Last Admin: 06/03/17 10:37 Dose: 81 mg Heparin Sodium (Porcine) (Heparin) 5,000 units SC Q12H COUNTS INCLUDE 234 BEDS AT THE [facility] Last Admin: 06/03/17 19:23 Dose: 5,000 units Piperacillin Sod/Tazobactam Sod (Zosyn 3.375 Gm Iv Premix) 3.375 gm in 50 mls @ 100 mls/hr IVPB Q6H COUNTS INCLUDE 234 BEDS AT THE [facility] Last Admin: 06/03/17 19:23 Dose: 100 mls/hr Vancomycin/Sodium Chloride (Vancomycin 1 Gm/Ns 200 Ml) 1 gm in 200 mls @ 133 mls/hr IVPB Q12H COUNTS INCLUDE 234 BEDS AT THE [facility] Stop: 06/07/17 21:01 Last Admin: 06/03/17 21:19 Dose: 133 mls/hr Oseltamivir Phosphate (Tamiflu Cap) 75 mg PO BID DIEGO PRN Reason: Protocol Stop: 06/07/17 19:20 Last Admin: 06/03/17 17:40 Dose: 75 mg Pneumococcal Polyvalent Vaccine (Pneumovax 23 Vaccine) 0.5 ml IM .ONCE ONE Stop: 06/04/17 12:01 - Labs Labs: 06/03/17 07:20 06/03/17 07:20 Attending/Attestation - Attestation I have personally seen and examined this patient.: Yes I have fully participated in the care of the patient.: Yes I have reviewed all pertinent clinical information, including history, physical exam and plan: Yes Notes (Text): Patient seen, examined, and case discussed with medical office supervisor. Patient went to echocardiogram this morning. Patient seen this afternoon. Patient clinically appears alot better compared to how I saw her last night. Patient reports productive cough, she is not sweating , denies shortness of breathe. We will f/u with ID, cardiology, and Pulmonary in regards to recommendations. Assessment/Plan 1) Possible CHF Pulmonary edema Mitral Reguritation * admit to telemetry * Cardiology Consult Dr. Byrd, help appreciated * Treat influenza * f/u to re-evaluate MR and CHANDRAKANT as outpatient * Critical Care Consult, Dr. Aguirre, help appreciated * Discussed, stable for telemetry, given small dose of Lasix * EKG shows sinus tachycardia with ST depressions in V4-V6 with T wave inversions * f/u LESLEY x2 along with EKG * Echocardiogram official report available in EMR: mild regurgitation (further findings per report) * Lipid panel: T, Cholestrol:117, LDL: 63, HDL: 39 * Hemoglobin A1c: 5.8 * TSH: 0.91, Free T4: 1.21 * Monitor intake and output * daily weight * unable to given blood pressure medications given low normal blood pressure * probnp downtrending 2) Influenza A * Infectious Disease (Dr. Baez), help appreciated * Given Azithromycin and Rocephin in the ED * Flu positive * Droplet precautions * Tamiflu 75mg PO BID * start Vancomycin 1 gm Q12H * F/u vancomycin trough AM * start Zosyn 3.375 gm Q6H * 06/02/17 blood cultures: growth after 24hours X2 * Procalcitonin: Low * Duoneb Q4 prn * O2 via cannula 3) Bronchitis Chronic Atelectasis Pneumonia * ID consult, Dr. Baez, help appreciated * Pulm consult, Dr. Cook, help appreciated * Chest CT: Findings consistent with pulmonary edema/ CHF. Mass-like density in the medial aspect right middle lobe region probably represents chronic atelectasis. Follow-up CT scan at interval recommended to assess resolution as the possibility of underlying mass lesion cannot be completely excluded. * Given Azithromycin and Rocephin in the ED * Vancomycin 1 gm Q12H and Zosyn 3.375 gm Q6H * Duoneb Q4 prn * O2 via cannula 4) Urinary Tract Infection * Infectious disease consult, Dr. Baez, help appreciated * Urine culture (06/02/17): no growth * 2+ leuk esterase and symptomatic * f/u urine cultures * Vancomycin 1 gm Q12H * Zosyn 3.375 gm Q6H 5) Anemia * low iron, TIBC: 299, low iron saturation, ferritin: 63.0 * check reticulocyte count, haptoglobin, b12 and folate 6) Prophylaxis * Heart Healthy Diet with fluid restriction * Heparin SC Q12H * monitor on telemetry * PT/OT eval * Hold influenza/pneumonia vaccines since patient is admitted for influenza * Droplet precautions
[2017-06-03 07:40] LABS: BASO % 0.6 % (0.0-2.0); EOS % 0.3 % (0.0-4.0); LYMPH # 0.9 K/uL (1.0-4.3); LYMPH % 13.7 % (20.0-40.0); MEAN CELL VOLUME 79.1 fL (81.0-99.0); MEAN CORPUSCULAR HGB CONC 32.9 g/dL (33.0-37.0); MONO # 0.6 K/uL (0.0-0.8); MONO % 9.1 % (0.0-10.0); NEUT # 4.9 K/uL (1.8-7.0); NEUT % 76.3 % (50.0-75.0); RBC 3.86 Mil/uL (3.80-5.20); WHITE BLOOD COUNT 6.4 K/uL (4.8-10.8)
[2017-06-03 07:59] LABS: ALBUMIN 3.5 g/dL (3.5-5.0); ALT/SGPT 24 U/L (9-52); AST/SGOT 29 U/L (14-36); BLOOD UREA NITROGEN 9 mg/dL (7-17); CALCIUM 8.1 mg/dl (8.6-10.4); GFR AFRICAN-AMERICAN > 60; GFR NON-AFRICAN AMERICAN > 60; HDL CHOLESTEROL 39 mg/dL (30-70)
[2017-06-03 08:04] LABS: LDL CHOLESTEROL 63 mg/dL (0-129)
--- NOTE | 2017-06-03 11:07 | CARD ---
APPROVED REPORT EKG Measurement Heart [id number] <Conclusion> Normal sinus rhythm Possible Left atrial enlargement Nonspecific ST and T wave abnormality Prolonged QT Abnormal ECG
--- NOTE | 2017-06-03 12:30 | CP.PCM.PN ---
Subjective - Date & Time of Evaluation Date of Evaluation: 06/03/17 Time of Evaluation: 08:00 - Subjective Subjective: Reason for pulmonary consultation: pulmonary hypertension, shortness of breath Patient seen and examined at bedside. 42 F with PMHx of cardiomegaly presented to the ED with fevers, malaise and shortness of breath that began 2 days ago. At 1AM morning, she awoke with fever, sore throat and shortness of breath that did not resolve with an inhalation of albuterol. Patient's was sick with similar symptoms earlier in the week. Patient did not get the flu shot this year. Patient complains of productive cough. PMHx: cardiomegaly after PSH: fibroidectomy, hernia repair, tonsillectomy Allergies: NKDA SH: Denies tobacco, alcohol, drugs. Home meds: ventolin inhaler, theraflu syrup 1. bronchitis secondary to influenza infection - spiking low-grade fevers - positive for influenza A - tamiflu 2. Chronic atelectasis vs. Pneumonia - CT Chest 06/02: consistent with pulmonary edema/ CHF. Mass-like density in RML probably presents chronic atelectasis. - 06/02: 12 bands - zosyn, vanco - duonebs - blood cultures pending 3. CHF - CT Chest 06/02: consistent with pulmonary edema/ CHF. Objective - Vital Signs/Intake and Output Vital Signs (last 24 hours): Temp Pulse Resp BP Pulse Ox 99.4 F 71 20 102/67 97 06/03/17 07:00 06/03/17 07:00 06/03/17 07:00 06/03/17 07:00 06/03/17 07:00 - Medications Medications: Current Medications Acetaminophen (Tylenol 325mg Tab) 650 mg PO Q6 PRN PRN Reason: Fever >100.4 F Last Admin: 06/03/17 04:25 Dose: 650 mg Albuterol/Ipratropium (Duoneb 3 Mg/0.5 Mg (3 Ml) Ud) 3 ml INH RQ4 PRN PRN Reason: Shortness of Breath Aspirin (Aspirin Chewable) 81 mg PO DAILY [facility] Last Admin: 06/03/17 10:37 Dose: 81 mg Heparin Sodium (Porcine) (Heparin) 5,000 units SC Q12H [facility] Last Admin: 06/03/17 06:42 Dose: 5,000 units Piperacillin Sod/Tazobactam Sod (Zosyn 3.375 Gm Iv Premix) 3.375 gm in 50 mls @ 100 mls/hr IVPB Q6H [facility] Last Admin: 06/03/17 11:37 Dose: 100 mls/hr Vancomycin/Sodium Chloride (Vancomycin 1 Gm/Ns 200 Ml) 1 gm in 200 mls @ 133 mls/hr IVPB Q12H [facility] Stop: 06/07/17 21:01 Last Admin: 06/03/17 11:39 Dose: 133 mls/hr Oseltamivir Phosphate (Tamiflu Cap) 75 mg PO BID [facility] PRN Reason: Protocol Stop: 06/07/17 19:20 Last Admin: 06/03/17 10:00 Dose: 75 mg Pneumococcal Polyvalent Vaccine (Pneumovax 23 Vaccine) 0.5 ml IM .ONCE ONE Stop: 06/04/17 12:01 - Labs Labs: 06/03/17 07:20 06/03/17 07:20
--- NOTE | 2017-06-03 13:29 | CARD ---
APPROVED REPORT EKG Measurement Heart [id number] <Conclusion> Normal sinus rhythm Possible Left atrial enlargement Septal infarct, age undetermined Abnormal ECG
--- NOTE | 2017-06-03 13:34 | CARD ---
APPROVED REPORT EKG Measurement Heart [id number] ID [id number] <Conclusion> Normal sinus rhythm Possible Left atrial enlargement ST & T wave abnormality, consider inferolateral ischemia Abnormal ECG
--- NOTE | 2017-06-03 14:12 | CARD ---
APPROVED REPORT EXAM: Two-dimensional and M-mode echocardiogram with Doppler and color Doppler. Other Information Quality : GoodRhythm : INDICATION ICD: CARDIOMEGALY Congestive Heart Failure RISK FACTORS Obesity 2D DIMENSIONS IVSd1.3 (0.7-1.1cm)LVDd4.7 (3.9-5.9cm) PWd1.1 (0.7-1.1cm)LVDs2.4 (2.5-4.0cm) FS (%) 49.1 %LVEF (%)80.4 (>50%) M-Mode DIMENSIONS RVDd3.45 (2.1-3.2cm) Mitral Valve MV E Vaqaotjs70.8cm/sMV A Adunvdtq66.4cm/sE/A ratio1.3 TDI E/Lateral E'0.0E/Medial E'0.0 Tricuspid Valve TR Peak Oxbnycme396mh/sTR Peak Gr.[id number] LEFT VENTRICLE The left ventricle is normal size. There is mild concentric left ventricular hypertrophy. An intracavitary gradient is suspected.IT COULD BE CONTAMINATION FROM MR The left ventricular function is normal. The left ventricular ejection fraction is within the normal range. No regional wall motion abnormalities noted. Transmitral Doppler flow pattern is Grade II-pseudonormal filling dynamics. LV FILLING PRESSURE MILDLY INCREASED No left ventricle thrombus noted on this study. There is no ventricular septal defect visualized. There is no left ventricular aneurysm. There is no mass noted in the left ventricle. RIGHT VENTRICLE The right ventricle is normal size. There is normal right ventricular wall thickness. The right ventricular systolic function is normal. ATRIA The left atrium is moderately dilated. The right atrium size is normal. The interatrial septum is intact with no evidence for an atrial septal defect. AORTIC VALVE The aortic valve is normal in structure and function. There is mild aortic regurgitation. There is no aortic valvular stenosis. There is no aortic valvular vegetation. MITRAL VALVE The mitral valve is normal in structure and function. There is no evidence of mitral valve prolapse. There is no mitral valve stenosis. The mitral regurgitant jet is posteriorly directed, which is consistent with anterior leaflet pathology.The exaggerated left ventricular wall motion and enlarged left atrium suggest significant mitral regurgitation. TRICUSPID VALVE The tricuspid valve is normal in structure and function. There is mild tricuspid regurgitation. Right ventricular systolic pressure is estimated at 30-40 mmHg. There is no tricuspid valve prolapse or vegetation. There is no tricuspid valve stenosis. PULMONIC VALVE The pulmonary valve is normal in structure and function. PA ED PRESSURE IS MILDLY ELEVATED There is mild pulmonic valvular regurgitation. There is no pulmonic valvular stenosis. GREAT VESSELS The aortic root is normal in size. The ascending aorta is normal in size. The pulmonary artery is normal. The IVC is normal in size and collapses >50% with inspiration. PERICARDIAL EFFUSION The pericardium appears normal. There is no pleural effusion. <Conclusion> There is mild concentric left ventricular hypertrophy. The left ventricular function is normal. The left ventricular ejection fraction is within the normal range. Transmitral Doppler flow pattern is Grade II-pseudonormal filling dynamics. LV FILLING PRESSURE MILDLY INCREASED There is mild concentric left ventricular hypertrophy. An intracavitary gradient is suspected.IT COULD BE CONTAMINATION FROM MR There is mild aortic regurgitation. The mitral regurgitant jet is posteriorly directed, which is consistent with anterior leaflet pathology.The exaggerated left ventricular wall motion and enlarged left atrium suggest significant mitral regurgitation. There is mild tricuspid regurgitation. Right ventricular systolic pressure is estimated at 30-40 mmHg. PA ED PRESSURE IS MILDLY ELEVATED There is mild pulmonic valvular regurgitation.
--- NOTE | 2017-06-03 15:26 | CP.PCM.CON ---
History of Present Illness - History of Present Illness History of Present Illness: dictated Past Patient History - Past Medical History & Family History Past Medical History?: Yes - Past Social History Smoking Status: Never Smoked - CARDIAC Hx Cardiac Disorders: No - PULMONARY Hx Asthma: Yes (When young) - NEUROLOGICAL Hx Neurological Disorder: No - HEENT Hx HEENT Problems: No - RENAL Hx Chronic Kidney Disease: No - ENDOCRINE/METABOLIC Hx Endocrine Disorders: No - HEMATOLOGICAL/ONCOLOGICAL Hx Blood Disorders: No - INTEGUMENTARY Hx Dermatological Problems: No - MUSCULOSKELETAL/RHEUMATOLOGICAL Hx Musculoskeletal Disorders: No Hx Falls: No - GASTROINTESTINAL Hx Gastrointestinal Disorders: No - GENITOURINARY/GYNECOLOGICAL Hx Genitourinary Disorders: No - PSYCHIATRIC Hx Substance Use: No - SURGICAL HISTORY Hx Surgeries: Yes Hx Tonsillectomy: Yes Other/Comment: Fibroid removal - ANESTHESIA Hx Anesthesia: Yes Hx Anesthesia Reactions: No Meds Allergies/Adverse Reactions: Allergies Allergy/AdvReac Type Severity Reaction Status Date / Time No Known Allergies Allergy Verified 06/02/17 13:11 - Medications Medications: Current Medications Acetaminophen (Tylenol 325mg Tab) 650 mg PO Q6 PRN PRN Reason: Fever >100.4 F Last Admin: 06/03/17 04:25 Dose: 650 mg Albuterol/Ipratropium (Duoneb 3 Mg/0.5 Mg (3 Ml) Ud) 3 ml INH RQ4 PRN PRN Reason: Shortness of Breath Aspirin (Aspirin Chewable) 81 mg PO DAILY [facility] Last Admin: 06/03/17 10:37 Dose: 81 mg Heparin Sodium (Porcine) (Heparin) 5,000 units SC Q12H [facility] Last Admin: 06/03/17 06:42 Dose: 5,000 units Piperacillin Sod/Tazobactam Sod (Zosyn 3.375 Gm Iv Premix) 3.375 gm in 50 mls @ 100 mls/hr IVPB Q6H [facility] Last Admin: 06/03/17 13:55 Dose: 100 mls/hr Vancomycin/Sodium Chloride (Vancomycin 1 Gm/Ns 200 Ml) 1 gm in 200 mls @ 133 mls/hr IVPB Q12H [facility] Stop: 06/07/17 21:01 Last Admin: 06/03/17 11:39 Dose: 133 mls/hr Oseltamivir Phosphate (Tamiflu Cap) 75 mg PO BID [facility] PRN Reason: Protocol Stop: 06/07/17 19:20 Last Admin: 06/03/17 10:00 Dose: 75 mg Pneumococcal Polyvalent Vaccine (Pneumovax 23 Vaccine) 0.5 ml IM .ONCE ONE Stop: 06/04/17 12:01 Results - Vital Signs Recent Vital Signs: Last Vital Signs Temp 99.4 F 06/03/17 07:00 Pulse 71 06/03/17 07:00 Resp 20 06/03/17 07:00 BP 102/67 06/03/17 07:00 Pulse Ox 97 06/03/17 07:00 - Labs Result Diagrams: 06/03/17 07:20 06/03/17 07:20 Labs: Laboratory Results - last 24 hr 06/02/17 06/02/17 06/02/17 14:30 15:37 19:13 WBC RBC Hgb Hct MCV MCH MCHC RDW Plt Count MPV Neut % (Auto) Lymph % (Auto) Jennings % (Auto) Eos % (Auto) Baso % (Auto) Neut # (Auto) Lymph # (Auto) Jennings # (Auto) Eos # (Auto) Baso # (Auto) Neutrophils % (Manual) 72 Band Neutrophils % 12 H* Lymphocytes % (Manual) 7 L Monocytes % (Manual) 5 Eosinophils % (Manual) 3 Basophils % (Manual) 1 Platelet Estimate Normal Large Platelets Present Hypochromasia (manual) Slight Poikilocytosis (manual Slight Anisocytosis (manual) Slight Puncture Site Lr pCO2 26 L pO2 106 H HCO3 23.9 ABG pH 7.50 H ABG Total CO2 21.1 L ABG O2 Saturation 99.6 H ABG Base Excess -1.4 Farrukh Test Po ABG Potassium 3.0 L VBG pH VBG pCO2 VBG HCO3 VBG Total CO2 VBG O2 Sat (Calc) VBG Base Excess VBG Potassium A-a O2 Difference 90.0 Respiratory Index 0.8 Sodium 140.0 Chloride 109.0 H Glucose 97 Lactate 0.6 L Liter Flow 3.0 FiO2 32.0 Crit Value Called To Crit Value Called By Crit Value Read Back Blood Gas Notified Time Potassium Carbon Dioxide Anion Gap BUN Creatinine Est GFR ( Amer) Est GFR (Non-Af Amer) Random Glucose Hemoglobin A1c Calcium Phosphorus Magnesium Total Bilirubin AST ALT Alkaline Phosphatase Total Creatine Kinase CK-MB (Mass) Troponin I NT-Pro-B Natriuret Pep Total Protein Albumin Globulin Albumin/Globulin Ratio Triglycerides Cholesterol LDL Cholesterol Direct HDL Cholesterol Free T4 TSH 3rd Generation Arterial Blood Potassium 3.0 L Venous Blood Potassium Urine Color Straw Urine Clarity Hazy Urine pH 5.0 Ur Specific [place] 1.012 Urine Protein Negative Urine Glucose (UA) Normal Urine Ketones Negative Urine Blood 1+ H Urine Nitrate Negative Urine Bilirubin Negative Urine Urobilinogen Normal Ur Leukocyte Esterase 2+ H Urine WBC (Auto) 13 H Urine RBC (Auto) 2 Ur Squamous Epith Cells 6 H Urine Bacteria Rare Urine HCG, Qual Negative 06/02/17 06/02/17 06/03/17 20:17 22:46 02:51 WBC RBC Hgb Hct MCV MCH MCHC RDW Plt Count MPV Neut % (Auto) Lymph % (Auto) Jennings % (Auto) Eos % (Auto) Baso % (Auto) Neut # (Auto) Lymph # (Auto) [place] # (Auto) Eos # (Auto) Baso # (Auto) Neutrophils % (Manual) Band Neutrophils % Lymphocytes % (Manual) Monocytes % (Manual) Eosinophils % (Manual) Basophils % (Manual) Platelet Estimate Large Platelets Hypochromasia (manual) Poikilocytosis (manual Anisocytosis (manual) Puncture Site pCO2 pO2 24 L HCO3 ABG pH ABG Total CO2 ABG O2 Saturation ABG Base Excess Farrukh Test ABG Potassium VBG pH 7.36 VBG pCO2 34 L VBG HCO3 19.1 VBG Total CO2 20.2 L VBG O2 Sat (Calc) 44.6 VBG Base Excess -5.4 L VBG Potassium 2.4 L* A-a O2 Difference Respiratory Index Sodium 155.0 H Chloride 115.0 H Glucose 71 Lactate 0.6 L Liter Flow FiO2 Crit Value Called To Dr [email or web address] Crit Value Called By Miguel murray Crit Value Read Back Y Blood Gas Notified Time 2250 Potassium Carbon Dioxide Anion Gap BUN Creatinine Est GFR ( Amer) Est GFR (Non-Af Amer) Random Glucose Hemoglobin A1c Calcium Phosphorus Magnesium Total Bilirubin AST ALT Alkaline Phosphatase Total Creatine Kinase 109 121 CK-MB (Mass) 2.01 3.24 Troponin I 0.0590 0.0770 NT-Pro-B Natriuret Pep Total Protein Albumin Globulin Albumin/Globulin Ratio Triglycerides Cholesterol LDL Cholesterol Direct HDL Cholesterol Free T4 TSH 3rd Generation Arterial Blood Potassium Venous Blood Potassium 2.4 L* Urine Color Urine Clarity Urine pH Ur Specific [place] Urine Protein Urine Glucose (UA) Urine Ketones Urine Blood Urine Nitrate Urine Bilirubin Urine Urobilinogen Ur Leukocyte Esterase Urine WBC (Auto) Urine RBC (Auto) Ur Squamous Epith Cells Urine Bacteria Urine HCG, Qual 06/03/17 06/03/17 06/03/17 07:20 07:20 07:20 WBC RBC Hgb Hct MCV MCH MCHC RDW Plt Count MPV Neut % (Auto) Lymph % (Auto) [place] % (Auto) Eos % (Auto) Baso % (Auto) Neut # (Auto) Lymph # (Auto) Jennings # (Auto) Eos # (Auto) Baso # (Auto) Neutrophils % (Manual) Band Neutrophils % Lymphocytes % (Manual) Monocytes % (Manual) Eosinophils % (Manual) Basophils % (Manual) Platelet Estimate Large Platelets Hypochromasia (manual) Poikilocytosis (manual Anisocytosis (manual) Puncture Site pCO2 pO2 HCO3 ABG pH ABG Total CO2 ABG O2 Saturation ABG Base Excess Farrukh Test ABG Potassium VBG pH VBG pCO2 VBG HCO3 VBG Total CO2 VBG O2 Sat (Calc) VBG Base Excess VBG Potassium A-a O2 Difference Respiratory Index Sodium 139 Chloride 105 Glucose Lactate Liter Flow FiO2 Crit Value Called To Crit Value Called By Crit Value Read Back Blood Gas Notified Time Potassium 3.6 Carbon Dioxide 21 L Anion Gap 17 BUN 9 Creatinine 0.6 L Est GFR ( Amer) > 60 Est GFR (Non-Af Amer) > 60 Random Glucose 83 Hemoglobin A1c 5.8 Calcium 8.1 L Phosphorus 2.6 Magnesium 1.7 Total Bilirubin 0.6 AST 29 ALT 24 Alkaline Phosphatase 68 Total Creatine Kinase CK-MB (Mass) Troponin I NT-Pro-B Natriuret Pep Total Protein 6.9 Albumin 3.5 Globulin 3.4 Albumin/Globulin Ratio 1.0 Triglycerides 53 Cholesterol 117 LDL Cholesterol Direct 63 HDL Cholesterol 39 Free T4 1.21 TSH 3rd Generation 0.91 Arterial Blood Potassium Venous Blood Potassium Urine Color Urine Clarity Urine pH Ur Specific [place] Urine Protein Urine Glucose (UA) Urine Ketones Urine Blood Urine Nitrate Urine Bilirubin Urine Urobilinogen Ur Leukocyte Esterase Urine WBC (Auto) Urine RBC (Auto) Ur Squamous Epith Cells Urine Bacteria Urine HCG, Qual 06/03/17 06/03/17 07:20 13:32 WBC 6.4 RBC 3.86 Hgb 10.0 L Hct 30.5 L MCV 79.1 L MCH 26.0 L MCHC 32.9 L RDW 14.0 Plt Count 140 MPV 11.0 Neut % (Auto) 76.3 H Lymph % (Auto) 13.7 L Jennings % (Auto) 9.1 Eos % (Auto) 0.3 Baso % (Auto) 0.6 Neut # (Auto) 4.9 Lymph # (Auto) 0.9 L Jennings # (Auto) 0.6 Eos # (Auto) 0.0 Baso # (Auto) 0.0 Neutrophils % (Manual) Band Neutrophils % Lymphocytes % (Manual) Monocytes % (Manual) Eosinophils % (Manual) Basophils % (Manual) Platelet Estimate Large Platelets Hypochromasia (manual) Poikilocytosis (manual Anisocytosis (manual) Puncture Site pCO2 pO2 HCO3 ABG pH ABG Total CO2 ABG O2 Saturation ABG Base Excess Farrukh Test ABG Potassium VBG pH VBG pCO2 VBG HCO3 VBG Total CO2 VBG O2 Sat (Calc) VBG Base Excess VBG Potassium A-a O2 Difference Respiratory Index Sodium Chloride Glucose Lactate Liter Flow FiO2 Crit Value Called To Crit Value Called By Crit Value Read Back Blood Gas Notified Time Potassium Carbon Dioxide Anion Gap BUN Creatinine Est GFR ( Amer) Est GFR (Non-Af Amer) Random Glucose Hemoglobin A1c Calcium Phosphorus Magnesium Total Bilirubin AST ALT Alkaline Phosphatase Total Creatine Kinase CK-MB (Mass) Troponin I NT-Pro-B Natriuret Pep 1580 H Total Protein Albumin Globulin Albumin/Globulin Ratio Triglycerides Cholesterol LDL Cholesterol Direct HDL Cholesterol Free T4 TSH 3rd Generation Arterial Blood Potassium Venous Blood Potassium Urine Color Urine Clarity Urine pH Ur Specific [place] Urine Protein Urine Glucose (UA) Urine Ketones Urine Blood Urine Nitrate Urine Bilirubin Urine Urobilinogen Ur Leukocyte Esterase Urine WBC (Auto) Urine RBC (Auto) Ur Squamous Epith Cells Urine Bacteria Urine HCG, Qual
--- NOTE | 2017-06-03 16:35 | CP.PCM.CON ---
History of Present Illness - History of Present Illness History of Present Illness: I was asked to evaluate patient by Primary team. Patient is a 42 year old female with PMH HTN, obesity who presents with progressive cough, dyspnea. The patient was found to have influneza. pro BNP was elevated. There was concern for CHF. Review of Systems - Constitutional Constitutional: absent: As Per HPI, Anorexia, Chills, Daytime Sleepiness, Excessive Sweating, Fatigue, Fever, Frequent Falls, Headache, Increased Appetite , Lethargy, Malaise, Night Sweats, Snoring, Sleep Apnea, Weight Gain, Weight Loss, Weakness, Other - EENT Eyes: absent: As Per HPI, Blind Spots, Blurred Vision, Change in Vision, Decreased Night Vision, Diplopia, Discharge, Dry Eye, Exophthalmos, Floaters, Irritation, Itchy Eyes, Loss of Peripheral Vision, Pain, Photophobia, Requires Corrective Lenses, Sees Flashes, Spots in Vision, Tunnel Vision, Other Visual Disturbances, Loss of Vision, Other Ears: absent: As Per HPI, Decreased Hearing, Ear Discharge, Ear Pain, Tinnitus, Abnormal Hearing, Disequilibrium, Dizziness, Other Nose/Mouth/Throat: absent: As Per HPI, Epistaxis, Nasal Congestion, Nasal Discharge, Nasal Obstruction, Nasal Trauma, Nose Pain, Post Nasal Drip, Sinus Pain, Sinus Pressure, Bleeding Gums, Change in Voice, Dental Pain, Dry Mouth, Dysphagia, Halitosis, Hoarsness, Lip Swelling, Mouth Lesions, Mouth Pain, Odynophagia, Sore Throat, Throat Swelling, Tongue Swelling, Facial Pain, Neck Pain, Neck Mass, Other - Cardiovascular Cardiovascular: Dyspnea - Respiratory Respiratory: Dyspnea - Gastrointestinal Gastrointestinal: absent: As Per HPI, Abdominal Pain, Belching, Bloating, Change in Bowel Habits, Change in Stool Character, Coffee Ground Emesis, Constipation, Cramping, Diarrhea, Dyspepsia, Dysphagia, Early Satiety, Excessive Flatus, Fecal Incontinence, Heartburn, Hematemesis, Hematochezia, Loose Stools, Melena, Nausea, Odynophagia, Temesmus, Vomiting, Other - Genitourinary Genitourinary: absent: As Per HPI, Change in Urinary Stream, Difficulty Urinating, Dysuria, Flank Pain, Hematuria, Pyuria, Nocturia, Urinary Incontinence, Urinary Frequency, Urinary Hesitance, Urinary Urgency, Voiding Freq/Small Amts, Freq UTI, Hx Renal/Bladder Calculi, Hx /Renal Surgery, Bladder Distension, Other - Musculoskeletal Musculoskeletal: absent: As Per HPI, Abnormal Gait, Arthralgias, Atrophy, Back Pain, Deformity, Joint Swelling, Limited Range of Motion, Loss of Height, Muscle Cramps, Muscle Weakness, Myalgias, Neck Pain, Numbness, Radiating Pain into Limb, Stiffness, Tingling, Other - Integumentary Integumentary: absent: As Per HPI, Acne, Alopecia, Bleeding Lesions, Change in Hair, Change in Nails, Change in Pigmentation, Changing Lesions, Dry Skin, Erythema, Furuncle, Hirsutism, Lesions, New Lesions, Non-Healing Lesions, Photosensitivity, Pruritus, Rash, Skin Pain, Skin Ulcer, Sores, Striae, Swelling , Unusual Bruising, Wounds, Jaundice, Other - Neurological Neurological: absent: As Per HPI, Abnormal Gait, Abnormal Hearing, Abnormal Movements, Abnormal Speech, Behavioral Changes, Burning Sensations, Confusion, Convulsions, Disequilibrium, Dizziness, Numbness, Focal Weakness, Frequent Falls , Headaches, Lack of Coordination, Loss of Vision, Memory Loss, Paresthesias, Radicular Pain, Restless Legs, Sensory Deficit, Syncope, Tingling, Tremor, Vertigo, Weakness, Other Visual Disturbances, Other - Psychiatric Psychiatric: absent: As Per HPI, Abnormal Sleep Pattern, Anhedonia, Anxiety, Auditory Hallucinations, Behavioral Changes, Change in Appetite, Change in Libido, Confusion, Depression, Difficulty Concentrating, Hallucinations, Homicidal Ideation, Hopelessness, Irritability, Memory Loss, Mood Swings, Panic Attacks, Paranoia, Suicidal Ideation, Visual Hallucinations, Tactile Hallucinations, Other - Endocrine Endocrine: absent: As Per HPI, Change in Body Appearance, Change in Libido, Cold Intolorance, Deepening of Voice, Excessive Sweating, Fatigue, Flushing, Heat Intolorance, Increase in Ring/Shoe/Hat Size, Palpitations, Polydipsia, Polyphagia, Polyuria, Other - Hematologic/Lymphatic Hematologic: absent: As Per HPI, Easy Bleeding, Easy Bruising, Lymphadenopathy, Other Past Patient History - Past Medical History & Family History Past Medical History?: Yes - Past Social History Smoking Status: Never Smoked - CARDIAC Hx Cardiac Disorders: No - PULMONARY Hx Asthma: Yes (When young) - NEUROLOGICAL Hx Neurological Disorder: No - HEENT Hx HEENT Problems: No - RENAL Hx Chronic Kidney Disease: No - ENDOCRINE/METABOLIC Hx Endocrine Disorders: No - HEMATOLOGICAL/ONCOLOGICAL Hx Blood Disorders: No - INTEGUMENTARY Hx Dermatological Problems: No - MUSCULOSKELETAL/RHEUMATOLOGICAL Hx Musculoskeletal Disorders: No Hx Falls: No - GASTROINTESTINAL Hx Gastrointestinal Disorders: No - GENITOURINARY/GYNECOLOGICAL Hx Genitourinary Disorders: No - PSYCHIATRIC Hx Substance Use: No - SURGICAL HISTORY Hx Surgeries: Yes Hx Tonsillectomy: Yes Other/Comment: Fibroid removal - ANESTHESIA Hx Anesthesia: Yes Hx Anesthesia Reactions: No Meds Allergies/Adverse Reactions: Allergies Allergy/AdvReac Type Severity Reaction Status Date / Time No Known Allergies Allergy Verified 06/02/17 13:11 - Medications Medications: Current Medications Acetaminophen (Tylenol 325mg Tab) 650 mg PO Q6 PRN PRN Reason: Fever >100.4 F Last Admin: 06/03/17 04:25 Dose: 650 mg Albuterol/Ipratropium (Duoneb 3 Mg/0.5 Mg (3 Ml) Ud) 3 ml INH RQ4 PRN PRN Reason: Shortness of Breath Aspirin (Aspirin Chewable) 81 mg PO DAILY [facility] Last Admin: 06/03/17 10:37 Dose: 81 mg Heparin Sodium (Porcine) (Heparin) 5,000 units SC Q12H [facility] Last Admin: 06/03/17 06:42 Dose: 5,000 units Piperacillin Sod/Tazobactam Sod (Zosyn 3.375 Gm Iv Premix) 3.375 gm in 50 mls @ 100 mls/hr IVPB Q6H [facility] Last Admin: 06/03/17 13:55 Dose: 100 mls/hr Vancomycin/Sodium Chloride (Vancomycin 1 Gm/Ns 200 Ml) 1 gm in 200 mls @ 133 mls/hr IVPB Q12H [facility] Stop: 06/07/17 21:01 Last Admin: 06/03/17 11:39 Dose: 133 mls/hr Oseltamivir Phosphate (Tamiflu Cap) 75 mg PO BID [place] PRN Reason: Protocol Stop: 06/07/17 19:20 Last Admin: 06/03/17 10:00 Dose: 75 mg Pneumococcal Polyvalent Vaccine (Pneumovax 23 Vaccine) 0.5 ml IM .ONCE ONE Stop: 06/04/17 12:01 Physical Exam - Constitutional Appears: Non-toxic - Head Exam Head Exam: NORMAL INSPECTION - Eye Exam Eye Exam: Normal appearance - ENT Exam ENT Exam: Mucous Membranes Moist - Neck Exam Neck exam: Positive for: Full Rom - Respiratory Exam Respiratory Exam: Decreased Breath Sounds - Cardiovascular Exam Cardiovascular Exam: REGULAR RHYTHM, Systolic Murmur - GI/Abdominal Exam GI & Abdominal Exam: Normal Bowel Sounds - Rectal Exam Rectal Exam: Deferred - Extremities Exam Extremities exam: Negative for: pedal edema - Back Exam Back exam: NORMAL INSPECTION - Neurological Exam Neurological exam: Alert, Oriented x3 - Psychiatric Exam Psychiatric exam: Normal Affect - Skin Skin Exam: Normal Color Results - Vital Signs Recent Vital Signs: Last Vital Signs Temp 99.4 F 06/03/17 07:00 Pulse 71 06/03/17 07:00 Resp 20 06/03/17 07:00 BP 102/67 06/03/17 07:00 Pulse Ox 97 06/03/17 07:00 - Labs Result Diagrams: 06/03/17 07:20 06/03/17 07:20 Labs: Laboratory Results - last 24 hr 06/02/17 06/02/17 06/02/17 19:13 20:17 22:46 WBC RBC Hgb Hct MCV MCH MCHC RDW Plt Count MPV Neut % (Auto) Lymph % (Auto) [place] % (Auto) Eos % (Auto) Baso % (Auto) Neut # (Auto) Lymph # (Auto) [place] # (Auto) Eos # (Auto) Baso # (Auto) Puncture Site Lr pCO2 26 L pO2 106 H 24 L HCO3 23.9 ABG pH 7.50 H ABG Total CO2 21.1 L ABG O2 Saturation 99.6 H ABG Base Excess -1.4 Farrukh Test Po ABG Potassium 3.0 L VBG pH 7.36 VBG pCO2 34 L VBG HCO3 19.1 VBG Total CO2 20.2 L VBG O2 Sat (Calc) 44.6 VBG Base Excess -5.4 L VBG Potassium 2.4 L* A-a O2 Difference 90.0 Respiratory Index 0.8 Sodium 140.0 155.0 H Chloride 109.0 H 115.0 H Glucose 97 71 Lactate 0.6 L 0.6 L Liter Flow 3.0 FiO2 32.0 Crit Value Called To Dr [email or web address] Crit Value Called By Miguel murray Crit Value Read Back Y Blood Gas Notified Time 2250 Potassium Carbon Dioxide Anion Gap BUN Creatinine Est GFR ( Amer) Est GFR (Non-Af Amer) Random Glucose Hemoglobin A1c Calcium Phosphorus Magnesium Total Bilirubin AST ALT Alkaline Phosphatase Total Creatine Kinase 109 CK-MB (Mass) 2.01 Troponin I 0.0590 NT-Pro-B Natriuret Pep Total Protein Albumin Globulin Albumin/Globulin Ratio Triglycerides Cholesterol LDL Cholesterol Direct HDL Cholesterol Free T4 TSH 3rd Generation Arterial Blood Potassium 3.0 L Venous Blood Potassium 2.4 L* 06/03/17 06/03/17 06/03/17 02:51 07:20 07:20 WBC RBC Hgb Hct MCV MCH MCHC RDW Plt Count MPV Neut % (Auto) Lymph % (Auto) [place] % (Auto) Eos % (Auto) Baso % (Auto) Neut # (Auto) Lymph # (Auto) [place] # (Auto) Eos # (Auto) Baso # (Auto) Puncture Site pCO2 pO2 HCO3 ABG pH ABG Total CO2 ABG O2 Saturation ABG Base Excess Farrukh Test ABG Potassium VBG pH VBG pCO2 VBG HCO3 VBG Total CO2 VBG O2 Sat (Calc) VBG Base Excess VBG Potassium A-a O2 Difference Respiratory Index Sodium 139 Chloride 105 Glucose Lactate Liter Flow FiO2 Crit Value Called To Crit Value Called By Crit Value Read Back Blood Gas Notified Time Potassium 3.6 Carbon Dioxide 21 L Anion Gap 17 BUN 9 Creatinine 0.6 L Est GFR ( Amer) > 60 Est GFR (Non-Af Amer) > 60 Random Glucose 83 Hemoglobin A1c 5.8 Calcium 8.1 L Phosphorus 2.6 Magnesium 1.7 Total Bilirubin 0.6 AST 29 ALT 24 Alkaline Phosphatase 68 Total Creatine Kinase 121 CK-MB (Mass) 3.24 Troponin I 0.0770 NT-Pro-B Natriuret Pep Total Protein 6.9 Albumin 3.5 Globulin 3.4 Albumin/Globulin Ratio 1.0 Triglycerides 53 Cholesterol 117 LDL Cholesterol Direct 63 HDL Cholesterol 39 Free T4 TSH 3rd Generation 0.91 Arterial Blood Potassium Venous Blood Potassium 06/03/17 06/03/17 06/03/17 07:20 07:20 13:32 WBC 6.4 RBC 3.86 Hgb 10.0 L Hct 30.5 L MCV 79.1 L MCH 26.0 L MCHC 32.9 L RDW 14.0 Plt Count 140 MPV 11.0 Neut % (Auto) 76.3 H Lymph % (Auto) 13.7 L [place] % (Auto) 9.1 Eos % (Auto) 0.3 Baso % (Auto) 0.6 Neut # (Auto) 4.9 Lymph # (Auto) 0.9 L [place] # (Auto) 0.6 Eos # (Auto) 0.0 Baso # (Auto) 0.0 Puncture Site pCO2 pO2 HCO3 ABG pH ABG Total CO2 ABG O2 Saturation ABG Base Excess Farrukh Test ABG Potassium VBG pH VBG pCO2 VBG HCO3 VBG Total CO2 VBG O2 Sat (Calc) VBG Base Excess VBG Potassium A-a O2 Difference Respiratory Index Sodium Chloride Glucose Lactate Liter Flow FiO2 Crit Value Called To Crit Value Called By Crit Value Read Back Blood Gas Notified Time Potassium Carbon Dioxide Anion Gap BUN Creatinine Est GFR ( Amer) Est GFR (Non-Af Amer) Random Glucose Hemoglobin A1c Calcium Phosphorus Magnesium Total Bilirubin AST ALT Alkaline Phosphatase Total Creatine Kinase CK-MB (Mass) Troponin I NT-Pro-B Natriuret Pep 1580 H Total Protein Albumin Globulin Albumin/Globulin Ratio Triglycerides Cholesterol LDL Cholesterol Direct HDL Cholesterol Free T4 1.21 TSH 3rd Generation Arterial Blood Potassium Venous Blood Potassium - EKG Data EKG Interpreted by: Myself EKG shows normal: Sinus rhythm Assessment & Plan (1) Mitral regurgitation Assessment and Plan: The patient has thickening and prolapse of the anterior leaflet of the mitral valve. This contributes to the patient's systolic murmur. At this time I recommend management for influenza. The patient will follow up with me as outpatient for reevaluation of mitral vlave. I will consider [facility]AN[facility] as outpatient. Status: Acute
[2017-06-03 20:09] LABS: IRON 10 ug/dL (37-170); TOTAL IRON BINDING CAPACITY 299 ug/dL (250-450)
[2017-06-03 20:10] LABS: % IRON SATURATION 3 (20-55)
[2017-06-04] MEDS: Piperacill/Tazo 3.375gm in Dex 3.375 GM/50 ML BAG IVPB SCH ×4 (01:22→19:30)
--- NOTE | 2017-06-04 07:37 | CON ---
DATE: REQUESTED BY: Suad Smart DO HISTORY OF PRESENT ILLNESS: This patient is a 42-year-old female. She has history of cardiomyopathy, status post 10 years ago. She also is morbidly obese, comes in with a fever, malaise, shortness of breath that started 2 days prior to coming here. She woke up with fever, sore throat, shortness of breath. She denies taking flu shot this year. She gives history of childhood asthma, and she took her inhaler but it did not help her. She took Motrin and those did not help her. She says her was sick with similar symptoms before so the patient was checked for flu. She was found to be flu positive, and she also was having high fever and also the urine had pyuria, so she was admitted with sepsis and she is in isolation because of flu. PAST MEDICAL HISTORY: Significant for cardiomyopathy, status post . SURGICAL HISTORY: History of fibroid surgery, hernia repair, and tonsillectomy. ALLERGIES: SHE IS NOT ALLERGIC TO ANY MEDICINE. SOCIAL HISTORY: Negative for smoking or drinking or any. She lives with her . FAMILY HISTORY: Father at the age of 72, and mother at the young age of uterine cancer. She used Theraflu and Ventolin inhaler at home with no relief. She complains of cough and shortness of breath when she was admitted of abdominal pain. Denied any nausea, vomiting, or diarrhea. She denied dysuria but was complaining of itching with urination. She denies any back pain. No skin rash. No dizziness. No psych issues of anxiety. She denies any difficulty swallowing. Denies any headaches. She did complain of chest pain. SOCIAL HISTORY: Negative for smoking or drinking. No psychiatric medications. No substance abuse. SURGICAL HISTORY: As above. She has had anesthesia before. MEDICATIONS: She is on Tylenol, DuoNeb. She is on aspirin, heparin, Tamiflu 75 b.i.d. She is on Zosyn and vancomycin at this time. Zosyn at 3.375 every 6 hours, and she is on vancomycin 1 gm every 12 hour. PHYSICAL EXAMINATION: VITAL SIGNS: On examination, I find she is still febrile, she has 101.2 right now, she had 102.5 before; pulse rate of 78; blood pressure 135/77; respirations are 20. HEENT: Head is atraumatic, normocephalic. Eyes movements are unremarkable. No icterus present. Tongue is moist. GENERAL: She is awake, alert, oriented x3. Speaks only Urdu. NECK: Supple. LUNGS: Have bilateral rales and occasional wheezing. No rhonchi present. HEART: S1, S2 is tachycardic. There is a systolic murmur present. ABDOMEN: Soft. No guarding, no rigidity present. EXTREMITIES: Positive edema. LABORATORY DATA: Labs are noted. Labs show white count 6.4, hemoglobin 10, hematocrit 30.5, platelet count is 140, granulocytes are 70, neutrophils are 76.3. Potassium was low before, it is being supplemented. Now potassium is 3.6, sodium is 139. Lactate level was 0.6 on admission. Sodium 139, potassium 3.6, chlorides 105, CO2 is 21, BUN is 17, creatinine is 0.6, and there is proBNP which was 1580. Chest x-ray was done, and the chest CT shows findings consistent with pulmonary edema, mass-like density in the medial aspect, right middle lobe probably representing chronic atelectasis. Followup CT of interval recommends resolution of the possibility of underlying mass lesion cannot be completely excluded. it can be mass like, it is probably pneumonia. I would think, in this patient that was a nonsmoker, we will need to be followed till the resolution. She is on vancomycin and Zosyn. I want to make sure they do tests for serology for Strep pneumo and other etiologies for pneumonia. We will continue present treatment, and we will follow. Rasheed Baez MD
--- NOTE | 2017-06-04 07:41 | CP.PCM.PN ---
<yLn Beltran - Last Filed: 06/04/17 11:25> Subjective - Date & Time of Evaluation Date of Evaluation: 06/04/17 Time of Evaluation: 07:40 - Subjective Subjective: Progress Note Patient states her cough is better and she's feeling better. Patient denies fever overnight. Records show she had a T max of 102.5 within 24 hours and does not have a fever this morning. Patient explained she will have CHANDRAKANT as outpatient with Dr. Byrd upon discharge Objective - Vital Signs/Intake and Output Vital Signs (last 24 hours): Temp Pulse Resp BP Pulse Ox 98.2 F 62 20 104/63 95 06/04/17 04:19 06/04/17 04:19 06/04/17 04:19 06/04/17 04:19 06/03/17 23:45 Intake and Output: 06/04/17 06/04/17 06:59 18:59 Intake Total 740 Balance 740 - Medications Medications: Current Medications Acetaminophen (Tylenol 325mg Tab) 650 mg PO Q6 PRN PRN Reason: Fever >100.4 F Last Admin: 06/03/17 18:12 Dose: 650 mg Albuterol/Ipratropium (Duoneb 3 Mg/0.5 Mg (3 Ml) Ud) 3 ml INH RQ4 PRN PRN Reason: Shortness of Breath Aspirin (Aspirin Chewable) 81 mg PO DAILY [facility] Last Admin: 06/03/17 10:37 Dose: 81 mg Heparin Sodium (Porcine) (Heparin) 5,000 units SC Q12H [facility] Last Admin: 06/04/17 07:03 Dose: 5,000 units Piperacillin Sod/Tazobactam Sod (Zosyn 3.375 Gm Iv Premix) 3.375 gm in 50 mls @ 100 mls/hr IVPB Q6H [facility] Last Admin: 06/04/17 01:22 Dose: 100 mls/hr Vancomycin/Sodium Chloride (Vancomycin 1 Gm/Ns 200 Ml) 1 gm in 200 mls @ 133 mls/hr IVPB Q12H [facility] Stop: 06/07/17 21:01 Last Admin: 06/03/17 21:19 Dose: 133 mls/hr Oseltamivir Phosphate (Tamiflu Cap) 75 mg PO BID [facility] PRN Reason: Protocol Stop: 06/07/17 19:20 Last Admin: 06/03/17 17:40 Dose: 75 mg Pneumococcal Polyvalent Vaccine (Pneumovax 23 Vaccine) 0.5 ml IM .ONCE ONE Stop: 06/04/17 12:01 - Labs Labs: 06/03/17 07:20 06/03/17 07:20 - Additional Findings Additional findings: Constitutional Appears: Other (ill appearing with diaphoresis) - Head Exam Head Exam: ATRAUMATIC, NORMOCEPHALIC - Eye Exam Eye Exam: EOMI, PERRL - ENT Exam ENT Exam: Mucous Membranes Moist - Respiratory Exam Respiratory Exam: minimal rales, absent: Rhonchi, wheezing Additional comments: Coarse breath sounds bilaterally - Cardiovascular Exam Cardiovascular Exam: Tachycardia, REGULAR RHYTHM, +S1, +S2, Systolic Murmur ( loudest over pulmonic region). absent: JVD Additional comments: Hepatojugular reflex - GI/Abdominal Exam GI & Abdominal Exam: Hernia (reducible umbilical hernia), Normal Bowel Sounds, Soft. absent: Distended, Tenderness Additional comments: obese body habitus - Extremities Exam Extremities exam: Positive for: pedal edema - Neurological Exam Neurological exam: Alert, Oriented x3 - Psychiatric Exam Psychiatric exam: Normal Affect, Normal Mood - Skin Skin Exam: Diaphoretic, Warm Assessment and Plan - Assessment and Plan (Free Text) Assessment: Cardiomegaly with possible CHF considering pulmonary edema on CT imaging EKG shows sinus tachycardia with ST depressions in V4-V6 with T wave inversions LESLEY x2 negative, st depressions on ekg minimal good lipid panel Hgb A1c 5.8 TSH .91, free T4 1.21 UA 2+ leukocyte esterase, negative nitrates, rare bacteria, pH 5.0 BNP 2550 on admission 06/03 afternoon BNP [address] Byrd Critical Care Consult, Dr. Aguirre 06/03 Echo: Mild concentric left ventricular hypertrophy, normal Left ventricular function. Left ventricular EF is within normal range LV filling pressure is mildly increased. intracavitary gradient is suspected. could be contamination from MR. mild aortic regurg. mitral regurgitant jet is posteriorly detected: suggesting anterior leaflet pathology. exaggerated left ventricular wall motion and enlarged left atrium: significant mitral regurg. mild tricuspid regurg. right ventricular systolic pressure 30-40mmHg. mild pulmonic valvular regurg Per Dr. Byrd: Echo shows that the patient has thickening and prolapse of the anterior leaflet of the mitral valve. This contributes to the patient's systolic murmur. At this time I recommend management for influenza. The patient will follow up with me as outpatient for reevaluation of mitral valve. I will consider CHANDRAKANT as outpatient. Iron Studies: Iron 10 TIBC 299 % saturation 3 Ferritin 63 Procalc 0.05 Free T4 1.21 TSH .91 Influenza influenza a positive droplet precautions Received one dose of Tamiflu in ED Tamiflu 75 mg PO BID Isolation ordered Pneumonia Chest CT: * Findings consistent with pulmonary edema/ CHF. Mass-like density in the medial aspect right middle lobe region probably represents chronic atelectasis. Follow-up CT scan at interval recommended to assess resolution as the possibility of underlying mass lesion cannot be completely excluded. Phenergan for cough Given Azithromycin and Rocephin in the ED Vancomycin 1 gm Q12H, with vanc trough before every 4th dose Zosyn 3.375 gm Q6H procalcitonin Duoneb Q4 prn O2 via cannula ID consult, Dr. Baez, help appreciated Pulm consult, Dr. Cook, help appreciated UTI 2+ leuk esterase and symptomatic f/u urine cultures Vancomycin 1 gm Q12H Zosyn 3.375 gm Q6H ID consult, Dr. Baez, help appreciated Prophylaxis Heart Healthy Diet with fluid restriction Heparin SC Q12H Discussed with Dr. Smart <Suad Smart V - Last Filed: 06/04/17 12:29> Objective - Vital Signs/Intake and Output Vital Signs (last 24 hours): Temp Pulse Resp BP Pulse Ox 98.1 F 64 20 120/74 98 06/04/17 08:21 06/04/17 08:21 06/04/17 08:21 06/04/17 08:21 06/04/17 08:21 Intake and Output: 06/04/17 06/04/17 06:59 18:59 Intake Total 740 Balance 740 - Medications Medications: Current Medications Acetaminophen (Tylenol 325mg Tab) 650 mg PO Q6 PRN PRN Reason: Fever >100.4 F Last Admin: 06/03/17 18:12 Dose: 650 mg Albuterol/Ipratropium (Duoneb 3 Mg/0.5 Mg (3 Ml) Ud) 3 ml INH RQ4 PRN PRN Reason: Shortness of Breath Aspirin (Aspirin Chewable) 81 mg PO DAILY [facility] Last Admin: 06/04/17 10:01 Dose: 81 mg Heparin Sodium (Porcine) (Heparin) 5,000 units SC Q12H [facility] Last Admin: 06/04/17 07:03 Dose: 5,000 units Piperacillin Sod/Tazobactam Sod (Zosyn 3.375 Gm Iv Premix) 3.375 gm in 50 mls @ 100 mls/hr IVPB Q6H [facility] Last Admin: 06/04/17 08:53 Dose: 100 mls/hr Vancomycin/Sodium Chloride (Vancomycin 1 Gm/Ns 200 Ml) 1 gm in 200 mls @ 133 mls/hr IVPB Q12H [facility] Stop: 06/07/17 21:01 Last Admin: 06/04/17 10:01 Dose: 133 mls/hr Oseltamivir Phosphate (Tamiflu Cap) 75 mg PO BID [facility] PRN Reason: Protocol Stop: 06/07/17 19:20 Last Admin: 06/04/17 10:01 Dose: 75 mg Promethazine HCl/Codeine (Phenergan/Codeine Oral Syrup) 5 ml PO Q4 PRN PRN Reason: Cough Saccharomyces Boulardii (Florastor) 250 mg PO ACHS [facility] - Labs Labs: 06/04/17 08:00 06/04/17 08:00 Attending/Attestation - Attestation I have personally seen and examined this patient.: Yes I have fully participated in the care of the patient.: Yes I have reviewed all pertinent clinical information, including history, physical exam and plan: Yes Notes (Text): Patient seen, examined, and case discussed with medical claims representative. Patient seen this morning. Patient continues to improve. Patient reports mild throat pain. Patient had Tmax: 102.5F from yesterday evening. Patient eager to go home. Awaiting physical and occupational therapy. Will continue Tamiflu and Iv abx to cover for pneumonia, awaiting Legionella, Myocoplasma IgM, and Strep pneumoniae results. Unclear origin of anemia, since haptoglobin is elevated will f/u heme-onc Assessment/Plan 1) Possible CHF Pulmonary edema Mitral Reguritation * admit to telemetry * Cardiology Consult Dr. Byrd, help appreciated * Treat influenza * f/u to re-evaluate MR and CHANDRAKANT as outpatient * Critical Care Consult, Dr. Aguirre, help appreciated * Discussed, stable for telemetry, given small dose of Lasix * EKG shows sinus tachycardia with ST depressions in V4-V6 with T wave inversions * LESLEY: negative * Echocardiogram official report available in EMR: mild regurgitation (further findings per report) * Lipid panel: T, Cholestrol:117, LDL: 63, HDL: 39 * Hemoglobin A1c: 5.8 * TSH: 0.91, Free T4: 1.21 * Monitor intake and output * daily weight * unable to given blood pressure medications given low normal blood pressure * probnp downtrending 2) Influenza A * Infectious Disease (Dr. Baez), help appreciated * Given Azithromycin and Rocephin in the ED * Flu positive * Droplet precautions * Tamiflu 75mg PO BID (active since 06/03/17) * start Vancomycin 1 gm Q12H (active since 06/02/17) * F/u vancomycin trough 9.5 * start Zosyn 3.375 gm Q6H (active since 06/02/17) * 06/02/17 blood cultures: growth after 24hours X2 * Procalcitonin: Low * Duoneb Q4 prn * O2 via cannula 3) Bronchitis Chronic Atelectasis Pneumonia * ID consult, Dr. Baez, help appreciated * Pulm consult, Dr. Cook, help appreciated * Chest CT: Findings consistent with pulmonary edema/ CHF. Mass-like density in the medial aspect right middle lobe region probably represents chronic atelectasis. Follow-up CT scan at interval recommended to assess resolution as the possibility of underlying mass lesion cannot be completely excluded. * Given Azithromycin and Rocephin in the ED * Tamiflu 75mg PO BID (active since 06/03/17) * start Vancomycin 1 gm Q12H (active since 06/02/17) * F/u vancomycin trough 9.5 * start Zosyn 3.375 gm Q6H (active since 06/02/17) * Awaiting Legionella, Mycoplasma IgM, Strep Pneumonaie * Duoneb Q4 prn * O2 via cannula 4) Urinary Tract Infection * Infectious disease consult, Dr. Baez, help appreciated * Urine culture (06/02/17): no growth * 2+ leuk esterase and symptomatic * Vancomycin 1 gm Q12H * Zosyn 3.375 gm Q6H 5) Anemia * Unclear origin * Will consult Hematology-oncology for further recommendations * low iron, TIBC: 299, low iron saturation, ferritin: 63.0 * reticulocyte count: 0.7, * haptoglobin: elevated * b12: normal * folate: normal 6) Prophylaxis * Heart Healthy Diet with fluid restriction * Heparin SC Q12H * monitor on telemetry * PT/OT eval * Hold influenza/pneumonia vaccines since patient is admitted for influenza * Droplet precautions
[2017-06-04 08:15] LABS: BASO % 0.7 % (0.0-2.0); EOS # 0.2 K/uL (0.0-0.7); EOS % 4.6 % (0.0-4.0); HEMOGLOBIN 10.4 g/dL (11.0-16.0); LYMPH # 1.4 K/uL (1.0-4.3); LYMPH % 32.9 % (20.0-40.0); MEAN CORPUSCULAR HEMOGLOBIN 25.8 pg (27.0-31.0); MEAN CORPUSCULAR HGB CONC 32.7 g/dL (33.0-37.0); MEAN PLATELET VOLUME 11.1 fL (7.2-11.7); MONO # 0.5 K/uL (0.0-0.8); MONO % 10.7 % (0.0-10.0); NEUT # 2.2 K/uL (1.8-7.0); NEUT % 51.1 % (50.0-75.0); RBC 4.02 Mil/uL (3.80-5.20); RED CELL DISTRIBUTION WIDTH 14.2 % (11.5-14.5); WHITE BLOOD COUNT 4.3 K/uL (4.8-10.8)
[2017-06-04 08:37] LABS: ALBUMIN 3.6 g/dL (3.5-5.0); ALT/SGPT 25 U/L (9-52); AST/SGOT 32 U/L (14-36); BLOOD UREA NITROGEN 9 mg/dL (7-17); CALCIUM 8.5 mg/dl (8.6-10.4); GFR AFRICAN-AMERICAN > 60; GFR NON-AFRICAN AMERICAN > 60
[2017-06-04 08:47] LABS: B-TYPE NATRIURETIC PEPTIDE 1060 pg/mL (0-450)
[2017-06-04 09:13] LABS: FERRITIN 56.7 ng/mL
[2017-06-04 09:43] LABS: FOLATE > 20.0 ng/mL
[2017-06-04] MEDS: Vancomycin 1 gm/NS 200 ml 1 GM/200 ML BAG IVPB SCH ×2 (10:01→21:16)
[2017-06-04] MEDS ORDERED: Promethazine 12.5 mg/10 ml Syrup PO PRN (11:27)
[2017-06-04] MEDS ORDERED: Saccharomyces Boulardi 250 mg Cap PO SCH (11:30)
[2017-06-04] MEDS ORDERED: Pneumococcal 23-Valent Vaccine IM ONE (12:00)
[2017-06-04] MEDS: Saccharomyces Boulardi 250 mg Cap PO SCH (18:07)
[2017-06-05] MEDS: Piperacill/Tazo 3.375gm in Dex 3.375 GM/50 ML BAG IVPB SCH ×4 (03:04→21:06)
--- NOTE | 2017-06-05 07:44 | CP.PCM.PN ---
<Lyn Beltran - Last Filed: 06/05/17 09:11> Subjective - Date & Time of Evaluation Date of Evaluation: 06/05/17 Time of Evaluation: 07:47 - Subjective Subjective: Progress Note for Dr. Smart Patient seen and examined at bedside. No acute events overnight. Patient states she started her period. Patient states her cough is getting better and did not take cough medications. Patient was afebrile overnight. Patient denies fever, chills, nausea, vomiting. Objective - Vital Signs/Intake and Output Vital Signs (last 24 hours): Temp Pulse Resp BP Pulse Ox 97.9 F 62 20 123/81 96 06/04/17 23:40 06/05/17 00:12 06/04/17 23:40 06/04/17 23:40 06/04/17 23:40 - Medications Medications: Current Medications Acetaminophen (Tylenol 325mg Tab) 650 mg PO Q6 PRN PRN Reason: Fever >100.4 F Last Admin: 06/03/17 18:12 Dose: 650 mg Albuterol/Ipratropium (Duoneb 3 Mg/0.5 Mg (3 Ml) Ud) 3 ml INH RQ4 PRN PRN Reason: Shortness of Breath Aspirin (Aspirin Chewable) 81 mg PO DAILY [facility] Last Admin: 06/04/17 10:01 Dose: 81 mg Heparin Sodium (Porcine) (Heparin) 5,000 units SC Q12H [facility] Last Admin: 06/05/17 06:30 Dose: 5,000 units Piperacillin Sod/Tazobactam Sod (Zosyn 3.375 Gm Iv Premix) 3.375 gm in 50 mls @ 100 mls/hr IVPB Q6H [facility] Last Admin: 06/05/17 03:04 Dose: 100 mls/hr Vancomycin/Sodium Chloride (Vancomycin 1 Gm/Ns 200 Ml) 1 gm in 200 mls @ 133 mls/hr IVPB Q12H [facility] Stop: 06/07/17 21:01 Last Admin: 06/04/17 21:16 Dose: 133 mls/hr Oseltamivir Phosphate (Tamiflu Cap) 75 mg PO BID [facility] PRN Reason: Protocol Stop: 06/07/17 19:20 Last Admin: 06/04/17 18:07 Dose: 75 mg Promethazine HCl/Codeine (Phenergan/Codeine Oral Syrup) 5 ml PO Q4 PRN PRN Reason: Cough Saccharomyces Gadielulardii (Florastor) 250 mg PO BID [facility] Last Admin: 06/04/17 18:07 Dose: 250 mg - Labs Labs: 06/04/17 08:00 06/04/17 08:00 - Additional Findings Additional findings: Constitutional Appears: Other (ill appearing with diaphoresis) - Head Exam Head Exam: ATRAUMATIC, NORMOCEPHALIC - Eye Exam Eye Exam: EOMI, PERRL - ENT Exam ENT Exam: Mucous Membranes Moist - Respiratory Exam Respiratory Exam: minimal rales, absent: Rhonchi, wheezing - Cardiovascular Exam Cardiovascular Exam: Tachycardia, REGULAR RHYTHM, +S1, +S2, Systolic Murmur ( loudest over pulmonic region). absent: JVD - GI/Abdominal Exam GI & Abdominal Exam: Hernia (reducible umbilical hernia), Normal Bowel Sounds, Soft, Distended Absent: Tenderness - Extremities Exam Extremities exam: Positive for: pedal edema - Neurological Exam Neurological exam: Alert, Oriented x3 - Psychiatric Exam Psychiatric exam: Normal Affect, Normal Mood - Skin Skin Exam: Diaphoretic, Warm Assessment and Plan - Assessment and Plan (Free Text) Assessment: Cardiomegaly with possible CHF considering pulmonary edema on CT imaging EKG shows sinus tachycardia with ST depressions in V4-V6 with T wave inversions LESLEY x2 negative, st depressions on ekg minimal good lipid panel Hgb A1c 5.8 TSH .91, free T4 1.21 UA 2+ leukocyte esterase, negative nitrates, rare bacteria, pH 5.0 BNP 2550 on admission 06/03 afternoon BNP [address] Byrd Critical Care Consult, Dr. Aguirre 06/03 Echo: Mild concentric left ventricular hypertrophy, normal Left ventricular function. Left ventricular EF is within normal range LV filling pressure is mildly increased. intracavitary gradient is suspected. could be contamination from MR. mild aortic regurg. mitral regurgitant jet is posteriorly detected: suggesting anterior leaflet pathology. exaggerated left ventricular wall motion and enlarged left atrium: significant mitral regurg. mild tricuspid regurg. right ventricular systolic pressure 30-40mmHg. mild pulmonic valvular regurg Per Dr. Byrd: Echo shows that the patient has thickening and prolapse of the anterior leaflet of the mitral valve. This contributes to the patient's systolic murmur. At this time I recommend management for influenza. The patient will follow up with me as outpatient for reevaluation of mitral valve. I will consider CHANDRAKANT as outpatient. Anemia Iron Studies: Iron 10 TIBC 299 % saturation 3 Ferritin 63 Haptoglobin 305 Heme/Onc: Dr. Penaloza Procalc 0.05 Free T4 1.21 TSH .91 Influenza influenza a positive droplet precautions Received one dose of Tamiflu in ED Tamiflu 75 mg PO BID Isolation ordered Pneumonia Chest CT: * Findings consistent with pulmonary edema/ CHF. Mass-like density in the medial aspect right middle lobe region probably represents chronic atelectasis. Follow-up CT scan at interval recommended to assess resolution as the possibility of underlying mass lesion cannot be completely excluded. Phenergan for cough Given Azithromycin and Rocephin in the ED Vancomycin 1 gm Q12H, with vanc trough before every 4th dose Zosyn 3.375 gm Q6H procalcitonin Duoneb Q4 prn O2 via cannula ID consult, Dr. Baez, help appreciated Pulm consult, Dr. Cook, help appreciated UTI 2+ leuk esterase and symptomatic f/u urine cultures Vancomycin 1 gm Q12H Zosyn 3.375 gm Q6H ID consult, Dr. Baez, help appreciated Prophylaxis Heart Healthy Diet with fluid restriction Heparin SC Q12H Patient explained she will have CHANDRAKANT as outpatient with Dr. Byrd upon discharge Discussed with Dr. Smart <Suad Smart V - Last Filed: 06/05/17 16:28> Objective - Vital Signs/Intake and Output Vital Signs (last 24 hours): Temp Pulse Resp BP Pulse Ox 98.3 F 58 L 20 97/60 L 97 06/05/17 07:25 06/05/17 07:25 06/05/17 07:25 06/05/17 07:25 06/05/17 07:25 - Medications Medications: Current Medications Acetaminophen (Tylenol 325mg Tab) 650 mg PO Q6 PRN PRN Reason: Fever >100.4 F Last Admin: 06/03/17 18:12 Dose: 650 mg Albuterol/Ipratropium (Duoneb 3 Mg/0.5 Mg (3 Ml) Ud) 3 ml INH RQ4 PRN PRN Reason: Shortness of Breath Aspirin (Aspirin Chewable) 81 mg PO DAILY [facility] Last Admin: 06/05/17 09:32 Dose: 81 mg Heparin Sodium (Porcine) (Heparin) 5,000 units SC Q12H [facility] Last Admin: 06/05/17 06:30 Dose: 5,000 units Piperacillin Sod/Tazobactam Sod (Zosyn 3.375 Gm Iv Premix) 3.375 gm in 50 mls @ 100 mls/hr IVPB Q6H [facility] Last Admin: 06/05/17 08:44 Dose: 100 mls/hr Vancomycin/Sodium Chloride (Vancomycin 1 Gm/Ns 200 Ml) 1 gm in 200 mls @ 133 mls/hr IVPB Q12H [facility] Stop: 06/07/17 21:01 Last Admin: 06/05/17 09:32 Dose: 133 mls/hr Oseltamivir Phosphate (Tamiflu Cap) 75 mg PO BID [facility] PRN Reason: Protocol Stop: 06/07/17 19:20 Last Admin: 06/05/17 09:32 Dose: 75 mg Promethazine HCl/Codeine (Phenergan/Codeine Oral Syrup) 5 ml PO Q4 PRN PRN Reason: Cough Saccharomyces Boulardii (Florastor) 250 mg PO BID [facility] Last Admin: 06/05/17 09:32 Dose: 250 mg - Labs Labs: 06/05/17 08:25 06/05/17 08:25 Attending/Attestation - Attestation I have personally seen and examined this patient.: Yes I have fully participated in the care of the patient.: Yes I have reviewed all pertinent clinical information, including history, physical exam and plan: Yes Notes (Text): Patient seen, examined, and case discussed with medical social consultant. Patient seen this morning. Patient continues to improve. Patient reports throat pain has resolved. Patient's Tmax: 98.3F over the past 24 hours. Awaiting hematology evaluation. Patient reports she started her menstruation yesterday. Patient has not been told she was anemic prior to coming to the hospital. She reports she does have a history of fibroids, wherein she has seen Dr. Joslyn Moulton in the past, reports did not need hystrectomy given the location of the fibroids. Will repeat Chest xray to see if improvement Will continue Tamiflu today is Day 4. Will continue Iv abx to cover for pneumonia Unclear origin of anemia, since haptoglobin is elevated will f/u heme-onc Assessment/Plan 1) Mitral Reguritation Pulmonary Edema * admit to telemetry * Cardiology Consult Dr. Byrd, help appreciated * Treat influenza * f/u to re-evaluate MR and CHANDRAKANT as outpatient * Critical Care Consult, Dr. Aguirre, help appreciated * Discussed, stable for telemetry, given small dose of Lasix * EKG shows sinus tachycardia with ST depressions in V4-V6 with T wave inversions * LESLEY: negative * Echocardiogram official report available in EMR: mild regurgitation (further findings per report) * Lipid panel: T, Cholestrol:117, LDL: 63, HDL: 39 * Hemoglobin A1c: 5.8 * TSH: 0.91, Free T4: 1.21 * Monitor intake and output * daily weight * unable to given blood pressure medications given low normal blood pressure * probnp downtrending * Start lasix 20mg IV q daily 2) Influenza A * Infectious Disease (Dr. Baez), help appreciated * Given Azithromycin and Rocephin in the ED * Flu positive * Droplet precautions * Tamiflu 75mg PO BID (active since 06/03/17) * start Vancomycin 1 gm Q12H (active since 06/02/17) * F/u vancomycin trough 9.5 * start Zosyn 3.375 gm Q6H (active since 06/02/17) * 06/02/17 blood cultures: growth after 48hours X2 * Procalcitonin: Low * Duoneb Q4 prn * O2 via cannula 3) Bronchitis Chronic Atelectasis Pneumonia * ID consult, Dr. Baez, help appreciated * Pulm consult, Dr. Cook, help appreciated * Chest CT: Findings consistent with pulmonary edema/ CHF. Mass-like density in the medial aspect right middle lobe region probably represents chronic atelectasis. Follow-up CT scan at interval recommended to assess resolution as the possibility of underlying mass lesion cannot be completely excluded. * Given Azithromycin and Rocephin in the ED * Tamiflu 75mg PO BID (active since 06/03/17) * start Vancomycin 1 gm Q12H (active since 06/02/17) * F/u vancomycin trough 9.5 * start Zosyn 3.375 gm Q6H (active since 06/02/17) * Legionella: negative * Mycoplasma IgM: negative * Strep Pneumonaie: pending * Duoneb Q4 prn * O2 via cannula 4) Urinary Tract Infection-->resolved * Infectious disease consult, Dr. Baez, help appreciated * Urine culture (06/02/17): no growth * 2+ leuk esterase and symptomatic * Vancomycin 1 gm Q12H * Zosyn 3.375 gm Q6H 5) Anemia * Will consult Hematology-oncology for further recommendations * Unclear origin * History of fibroids, started her menstruation on 06/04/17 * low iron, TIBC: 299, low iron saturation, ferritin: 63.0 * reticulocyte count: 0.7, * haptoglobin: elevated * b12: normal * folate: normal 6) Prophylaxis * Heart Healthy Diet with fluid restriction * Heparin SC Q12H * d/c telemetry * PT/OT eval * Hold influenza/pneumonia vaccines since patient is admitted for influenza * Droplet precautions
[2017-06-05 08:32] LABS: BASO % 0.8 % (0.0-2.0); EOS # 0.4 K/uL (0.0-0.7); EOS % 9.6 % (0.0-4.0); HEMOGLOBIN 10.5 g/dL (11.0-16.0); LYMPH # 1.5 K/uL (1.0-4.3); LYMPH % 34.1 % (20.0-40.0); MEAN CORPUSCULAR HEMOGLOBIN 25.5 pg (27.0-31.0); MEAN CORPUSCULAR HGB CONC 32.3 g/dL (33.0-37.0); MEAN PLATELET VOLUME 10.9 fL (7.2-11.7); MONO # 0.5 K/uL (0.0-0.8); MONO % 10.5 % (0.0-10.0); NRBC % 0.1 % (0.0-2.0); RBC 4.11 Mil/uL (3.80-5.20); WHITE BLOOD COUNT 4.5 K/uL (4.8-10.8)
[2017-06-05 09:13] LABS: ALB/GLOB RATIO 1.1 (1.0-2.1); ALBUMIN 3.9 g/dL (3.5-5.0); ALT/SGPT 27 U/L (9-52); AST/SGOT 39 U/L (14-36); BLOOD UREA NITROGEN 9 mg/dL (7-17); CALCIUM 8.6 mg/dl (8.6-10.4); GFR AFRICAN-AMERICAN > 60; GFR NON-AFRICAN AMERICAN > 60
[2017-06-05] MEDS: Saccharomyces Boulardi 250 mg Cap PO SCH ×2 (09:32→17:33)
[2017-06-05] MEDS: Vancomycin 1 gm/NS 200 ml 1 GM/200 ML BAG IVPB SCH ×2 (09:32→21:06)
[2017-06-05] MEDS: Promethazine/Cod 6.25mg-10mg/5ml Syr UD PO PRN ×2 (13:32→17:33)
--- NOTE | 2017-06-05 15:29 | RAD ---
HISTORY: Shortness of breath COMPARISON: Comparison made with prior chest radiograph 06/02/2017 TECHNIQUE: Chest PA and lateral FINDINGS: LUNGS: Mild diffuse bilateral infiltrates likely representing pulmonary edema/CHF with questionable slight improvement from prior exam PLEURA: No significant pleural effusion identified. No pneumothorax apparent. CARDIOVASCULAR: Cardiomegaly OSSEOUS STRUCTURES: No significant abnormalities. VISUALIZED UPPER ABDOMEN: Normal. OTHER FINDINGS: None. IMPRESSION: Mild diffuse bilateral infiltrates likely representing pulmonary edema/CHF with questionable slight improvement from prior exam
--- NOTE | 2017-06-05 15:42 | CP.PCM.PN ---
Subjective - Date & Time of Evaluation Date of Evaluation: 06/05/17 Time of Evaluation: 03:30 - Subjective Subjective: dictated Objective - Vital Signs/Intake and Output Vital Signs (last 24 hours): Temp Pulse Resp BP Pulse Ox 98.3 F 58 L 20 97/60 L 97 06/05/17 07:25 06/05/17 07:25 06/05/17 07:25 06/05/17 07:25 06/05/17 07:25 - Medications Medications: Current Medications Acetaminophen (Tylenol 325mg Tab) 650 mg PO Q6 PRN PRN Reason: Fever >100.4 F Last Admin: 06/03/17 18:12 Dose: 650 mg Albuterol/Ipratropium (Duoneb 3 Mg/0.5 Mg (3 Ml) Ud) 3 ml INH RQ4 PRN PRN Reason: Shortness of Breath Aspirin (Aspirin Chewable) 81 mg PO DAILY [facility] Last Admin: 06/05/17 09:32 Dose: 81 mg Heparin Sodium (Porcine) (Heparin) 5,000 units SC Q12H [facility] Last Admin: 06/05/17 06:30 Dose: 5,000 units Piperacillin Sod/Tazobactam Sod (Zosyn 3.375 Gm Iv Premix) 3.375 gm in 50 mls @ 100 mls/hr IVPB Q6H [facility] Last Admin: 06/05/17 08:44 Dose: 100 mls/hr Vancomycin/Sodium Chloride (Vancomycin 1 Gm/Ns 200 Ml) 1 gm in 200 mls @ 133 mls/hr IVPB Q12H [facility] Stop: 06/07/17 21:01 Last Admin: 06/05/17 09:32 Dose: 133 mls/hr Oseltamivir Phosphate (Tamiflu Cap) 75 mg PO BID [facility] PRN Reason: Protocol Stop: 06/07/17 19:20 Last Admin: 06/05/17 09:32 Dose: 75 mg Promethazine HCl/Codeine (Phenergan/Codeine Oral Syrup) 5 ml PO Q4 PRN PRN Reason: Cough Last Admin: 06/05/17 13:32 Dose: 5 ml Saccharomyces Boulardii (Florastor) 250 mg PO BID [facility] Last Admin: 06/05/17 09:32 Dose: 250 mg - Labs Labs: 06/05/17 08:25 06/05/17 08:25
--- NOTE | 2017-06-05 22:06 | PN ---
DATE: SUBJECTIVE: The patient was seen. She was feeling little better. She is still coughing but not bringing up much phlegm, and she is, however, not having any fever, chills, or nausea and vomiting. She is not wheezing much. PHYSICAL EXAMINATION: VITAL SIGNS: T-max is 98 today, pulse 60, blood pressure 133/79, respirations are 20, saturations 98%. HEENT: Head is atraumatic, normocephalic. She is obese. NECK: Supple. LUNGS: Clear today. No crackles or rales heard. HEART: S1 and S2 regular. No murmurs appreciated and has a systolic murmur. ABDOMEN: Soft, nontender. She does have umbilical hernia. EXTREMITIES: Edema present. 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 Urine culture, blood culture x2 are negative, and chest x-ray was done today. She says it shows mild diffuse bilateral infiltrates likely representing pulmonary edema or CHF with questionable slight improvement from prior exam. We will discuss the plan with the primary tomorrow. If the patient continues to improve, then we will see if we would want to treat with oral antibiotic, Vantin, and keep her on Tamiflu and can go home and follow as an outpatient, but she needs clearance from Cardiology. Rasheed Baez MD
[2017-06-06] MEDS: Piperacill/Tazo 3.375gm in Dex 3.375 GM/50 ML BAG IVPB SCH ×2 (01:51→08:22)
[2017-06-06 06:57] LABS: BASO % 0.9 % (0.0-2.0); EOS # 0.6 K/uL (0.0-0.7); EOS % 13.2 % (0.0-4.0); HEMOGLOBIN 10.6 g/dL (11.0-16.0); LYMPH # 1.5 K/uL (1.0-4.3); LYMPH % 35.3 % (20.0-40.0); MEAN CELL VOLUME 78.5 fL (81.0-99.0); MEAN CORPUSCULAR HEMOGLOBIN 25.6 pg (27.0-31.0); MEAN CORPUSCULAR HGB CONC 32.7 g/dL (33.0-37.0); MEAN PLATELET VOLUME 10.2 fL (7.2-11.7); MONO # 0.6 K/uL (0.0-0.8); MONO % 12.8 % (0.0-10.0); NEUT # 1.7 K/uL (1.8-7.0); NEUT % 37.8 % (50.0-75.0); NRBC % 0.1 % (0.0-2.0); RBC 4.13 Mil/uL (3.80-5.20); RED CELL DISTRIBUTION WIDTH 14.1 % (11.5-14.5); WHITE BLOOD COUNT 4.4 K/uL (4.8-10.8)
[2017-06-06 07:23] LABS: ALB/GLOB RATIO 1.2 (1.0-2.1); ALBUMIN 3.8 g/dL (3.5-5.0); ALT/SGPT 31 U/L (9-52); AST/SGOT 39 U/L (14-36); BLOOD UREA NITROGEN 11 mg/dL (7-17); CALCIUM 8.5 mg/dl (8.6-10.4); GFR AFRICAN-AMERICAN > 60; GFR NON-AFRICAN AMERICAN > 60
[2017-06-06 08:32] VITALS: PULSE 56; RESP 20; TEMP 98.3; O2SAT 97
[2017-06-06] MEDS: Vancomycin 1 gm/NS 200 ml 1 GM/200 ML BAG IVPB SCH (09:25)
[2017-06-06] MEDS: Saccharomyces Boulardi 250 mg Cap PO SCH (09:34)
[2017-06-06 09:35] VITALS: BP 112/70
--- NOTE | 2017-06-06 09:52 | CP.PCM.PN ---
<DevinLyn - Last Filed: 06/06/17 09:54> Subjective - Date & Time of Evaluation Date of Evaluation: 06/06/17 Time of Evaluation: 09:52 - Subjective Subjective: Progress Note Patient seen and examined at bedside. No acute events overnight. Patient afebrile over 24 hours. Patient will follow up with Dr. Andre for CHANDRAKANT. Patient denies fever, chills, nausea, vomiting. Objective - Vital Signs/Intake and Output Vital Signs (last 24 hours): Temp Pulse Resp BP Pulse Ox 98.3 F 56 L 20 112/70 97 06/06/17 07:40 06/06/17 07:40 06/06/17 07:40 06/06/17 09:34 06/06/17 07:40 - Medications Medications: Current Medications Acetaminophen (Tylenol 325mg Tab) 650 mg PO Q6 PRN PRN Reason: Fever >100.4 F Last Admin: 06/03/17 18:12 Dose: 650 mg Albuterol/Ipratropium (Duoneb 3 Mg/0.5 Mg (3 Ml) Ud) 3 ml INH RQ4 PRN PRN Reason: Shortness of Breath Aspirin (Aspirin Chewable) 81 mg PO DAILY [facility] Last Admin: 06/06/17 09:34 Dose: 81 mg Furosemide (Lasix) 20 mg IVP DAILY [facility] Last Admin: 06/06/17 09:34 Dose: 20 mg Piperacillin Sod/Tazobactam Sod (Zosyn 3.375 Gm Iv Premix) 3.375 gm in 50 mls @ 100 mls/hr IVPB Q6H [facility] Last Admin: 06/06/17 08:22 Dose: 100 mls/hr Vancomycin/Sodium Chloride (Vancomycin 1 Gm/Ns 200 Ml) 1 gm in 200 mls @ 133 mls/hr IVPB Q12H [facility] Stop: 06/07/17 21:01 Last Admin: 06/06/17 09:25 Dose: 133 mls/hr Oseltamivir Phosphate (Tamiflu Cap) 75 mg PO BID [facility] PRN Reason: Protocol Stop: 06/07/17 19:20 Last Admin: 06/06/17 09:34 Dose: 75 mg Promethazine HCl/Codeine (Phenergan/Codeine Oral Syrup) 5 ml PO Q4 PRN PRN Reason: Cough Last Admin: 06/05/17 17:33 Dose: 5 ml Saccharomyces Boulardii (Florastor) 250 mg PO BID [facility] Last Admin: 06/06/17 09:34 Dose: 250 mg - Labs Labs: 06/06/17 06:45 06/06/17 06:45 - Additional Findings Additional findings: Constitutional Appears: Other (ill appearing with diaphoresis) - Head Exam Head Exam: ATRAUMATIC, NORMOCEPHALIC - Eye Exam Eye Exam: EOMI, PERRL - ENT Exam ENT Exam: Mucous Membranes Moist - Respiratory Exam Respiratory Exam: minimal rales, absent: Rhonchi, wheezing - Cardiovascular Exam Cardiovascular Exam: Tachycardia, REGULAR RHYTHM, +S1, +S2, Systolic Murmur ( loudest over pulmonic region). absent: JVD - GI/Abdominal Exam GI & Abdominal Exam: Hernia (reducible umbilical hernia), Normal Bowel Sounds, Soft, Distended Absent: Tenderness - Extremities Exam Extremities exam: Positive for: pedal edema - Neurological Exam Neurological exam: Alert, Oriented x3 - Psychiatric Exam Psychiatric exam: Normal Affect, Normal Mood - Skin Skin Exam: Diaphoretic, Warm Assessment and Plan - Assessment and Plan (Free Text) Assessment: Cardiomegaly with possible CHF considering pulmonary edema on CT imaging EKG shows sinus tachycardia with ST depressions in V4-V6 with T wave inversions LESLEY x2 negative, ST depressions on EKG minimal good lipid panel Hgb A1c 5.8 TSH .91, free T4 1.21 UA 2+ leukocyte esterase, negative nitrates, rare bacteria, pH 5.0 BNP 2550 on admission 06/03 afternoon BNP [address] Byrd Critical Care Consult, Dr. Aguirre 06/03 Echo: Mild concentric left ventricular hypertrophy, normal Left ventricular function. Left ventricular EF is within normal range LV filling pressure is mildly increased. intracavitary gradient is suspected. could be contamination from MR. mild aortic regurg. mitral regurgitant jet is posteriorly detected: suggesting anterior leaflet pathology. exaggerated left ventricular wall motion and enlarged left atrium: significant mitral regurg. mild tricuspid regurg. right ventricular systolic pressure 30-40mmHg. mild pulmonic valvular regurg Per Dr. Byrd: Echo shows that the patient has thickening and prolapse of the anterior leaflet of the mitral valve. This contributes to the patient's systolic murmur. At this time I recommend management for influenza. The patient will follow up with me as outpatient for reevaluation of mitral valve. I will consider CHANDRAKANT as outpatient. Anemia, patient began period 06/04 Iron Studies: Iron 10 TIBC 299 % saturation 3 Ferritin 63 Haptoglobin 305 outpatient Heme/Onc: Dr. Zayas Heme/Onc: Dr. Penaloza Free T4 1.21 TSH .91 Influenza influenza a positive droplet precautions Received one dose of Tamiflu in ED Tamiflu 75 mg PO BID Isolation ordered Pneumonia Chest CT: * Findings consistent with pulmonary edema/ CHF. Mass-like density in the medial aspect right middle lobe region probably represents chronic atelectasis. Follow-up CT scan at interval recommended to assess resolution as the possibility of underlying mass lesion cannot be completely excluded. Phenergan for cough Given Azithromycin and Rocephin in the ED Vancomycin 1 gm Q12H, with vanc trough before every 4th dose Zosyn 3.375 gm Q6H Procalc 0.05 Duoneb Q4 prn O2 via cannula ID consult, Dr. Baez, help appreciated Pulm consult, Dr. Cook, help appreciated UTI 2+ leuk esterase and symptomatic f/u urine cultures Vancomycin 1 gm Q12H Zosyn 3.375 gm Q6H ID consult, Dr. Baez, help appreciated Prophylaxis Heart Healthy Diet with fluid restriction Heparin SC Q12H Patient explained she will have CHANDRAKANT as outpatient with Dr. Byrd upon discharge Discussed with Dr. Smart <Lamont Watson - Last Filed: 06/06/17 10:37> Objective - Vital Signs/Intake and Output Vital Signs (last 24 hours): Temp Pulse Resp BP Pulse Ox 98.3 F 56 L 20 112/70 97 06/06/17 07:40 06/06/17 07:40 06/06/17 07:40 06/06/17 09:34 06/06/17 07:40 - Medications Medications: Current Medications Acetaminophen (Tylenol 325mg Tab) 650 mg PO Q6 PRN PRN Reason: Fever >100.4 F Last Admin: 06/03/17 18:12 Dose: 650 mg Albuterol/Ipratropium (Duoneb 3 Mg/0.5 Mg (3 Ml) Ud) 3 ml INH RQ4 PRN PRN Reason: Shortness of Breath Aspirin (Aspirin Chewable) 81 mg PO DAILY [facility] Last Admin: 06/06/17 09:34 Dose: 81 mg Furosemide (Lasix) 20 mg IVP DAILY [facility] Last Admin: 06/06/17 09:34 Dose: 20 mg Piperacillin Sod/Tazobactam Sod (Zosyn 3.375 Gm Iv Premix) 3.375 gm in 50 mls @ 100 mls/hr IVPB Q6H [facility] Last Admin: 06/06/17 08:22 Dose: 100 mls/hr Vancomycin/Sodium Chloride (Vancomycin 1 Gm/Ns 200 Ml) 1 gm in 200 mls @ 133 mls/hr IVPB Q12H [facility] Stop: 06/07/17 21:01 Last Admin: 06/06/17 09:25 Dose: 133 mls/hr Oseltamivir Phosphate (Tamiflu Cap) 75 mg PO BID [facility] PRN Reason: Protocol Stop: 06/07/17 19:20 Last Admin: 06/06/17 09:34 Dose: 75 mg Promethazine HCl/Codeine (Phenergan/Codeine Oral Syrup) 5 ml PO Q4 PRN PRN Reason: Cough Last Admin: 06/05/17 17:33 Dose: 5 ml Saccharomyces Boulardii (Florastor) 250 mg PO BID [facility] Last Admin: 06/06/17 09:34 Dose: 250 mg - Labs Labs: 06/06/17 06:45 06/06/17 06:45 Attending/Attestation - Attestation I have personally seen and examined this patient.: Yes I have fully participated in the care of the patient.: Yes I have reviewed all pertinent clinical information, including history, physical exam and plan: Yes Notes (Text): 06/06/17 10:21 Patient was seen and examined at 10:10 AM 06/06/17 Upon FULL ROS NO dysphagia/odynopahgia NO soreness in throat NO cough NO sinus/nasal congestion NO fever/chills NO muscle aches/pains NO joint pain NO chest pain/palpations NO SOB NO abdominal pain NO n/v/d/c NO burning pain with urination NO FRIAS NO lightheadedness/dizziness NO paresthesias Exam: General: AAOX3, NAD HEENT: NCA, EOMI, PERRLA, NO cervical/supraclavicular/submandibular lymphadenopathy, NO pharyngeal erythema/exudate, Nasal Turbinates are nonerythematous/nonedematous, Oral Mucosa is moist Cardio: NS1 and NS2, NO M/R/G Resp: CTA B/L, NO R/R/W GI: BSx4, Soft, NT, NO HSM, NO guarding/rebound tenderness Ext: Pulses are strong and equal, Capillary Refill is 2 seconds, NO edema Neuro: CN II through XII are grossly intact Vitals are stable. She have been fever free Blood Cultures are negative at least 72 hours Urine Culture shows NO growth HgB/Hct are stable Patient stated that her PMD was Dr. Anderson Patient is stable for discharge The following instructions will need to be provided to patient in [place]ian: 1). Schedule follow up with your Primary Care Physician Dr. Anderson. This follow up should take place in the next 7 days. 2). Schedule follow up with Assignment Agent Dr. Beni Byrd by calling his office at [phone]. Through Dr. Byrd' office you will need to have ultrasound done of your heart arranged. This follow up should take place in the next 14 days. 3). Schedule follo wup with Lung Physician Dr. Bhavna Cook by calling his office at [phone]. Through Dr. Cook's office you will need to have your lung volumes measured. This follow up should take place in the next 14 days. 4). You will need to have a repeat Chest X Ray done in 8 weeks to make sure that your pneumonia has been treated. You can have this done through Dr. Anderson' s office. 5). You were provided with prescriptions for the following medications. These are the ONLY medications that you should be taking for now. Please have them filled at your pharmacy on the way home from the hospital: Cefpodoxime 200 mg, 1 tablet by mouth 2x/day (breakfast and dinner) for the next 6 days until finished Oseltamivir 75 mg, 1 tablet by mouth tonight with dinner and tomorrow with breakfast and dinner Albuterol 90 mcg/actuation, 2 puffs by mouth every 6 hours ONLY as needed for shortness of breath and/or wheezing 6). You will need to have further workup for your Anemia. Please make sure that you obtain referral for Labeling Specialist through your Primary Care Physician Dr. Anderson. 7). Please make sure that you follow the above instructions. Failure to do so will have serious consequences to your health. 8). Please bring a copy of these instructions with you to your follow up appointments with Dr. Anderson, Dr. Byrd, and Dr. Cook. 9). Please take care and be well. Lamont Watson D.O. 06/06/17 10:33 06/06/17 10:34
--- NOTE | 2017-06-06 10:54 | CP.PCM.DIS ---
Addendum entered and electronically signed by Lyn Beltran DO 06/06/17 15:55: This is a summary of patient's hospitalization, please review EMR for further detail Original Note: <Lyn Beltran - Last Filed: 06/06/17 14:33> Provider - Provider Date of Admission: 06/02/17 18:50 Attending physician: Lamont Watson MD Consults: Dr. Joey Baez Time Spent in preparation of Discharge (in minutes): 35 Hospital Course - Lab Results Lab Results: Micro Results 06/02/17 15:30 Blood Blood Culture - Preliminary NO GROWTH AFTER 3 DAYS 06/02/17 15:00 Blood Blood Culture - Preliminary NO GROWTH AFTER 3 DAYS 06/02/17 Unknown Urine Urine Culture - Final No Growth (<1,000 CFU/ML) Most Recent Lab Values WBC 4.4 K/uL (4.8-10.8) L 06/06/17 06:45 RBC 4.13 Mil/uL (3.80-5.20) 06/06/17 06:45 Hgb 10.6 g/dL (11.0-16.0) L 06/06/17 06:45 Hct 32.4 % (34.0-47.0) L 06/06/17 06:45 MCV 78.5 fL (81.0-99.0) L 06/06/17 06:45 MCH 25.6 pg (27.0-31.0) L 06/06/17 06:45 MCHC 32.7 g/dL (33.0-37.0) L 06/06/17 06:45 RDW 14.1 % (11.5-14.5) 06/06/17 06:45 Plt Count 184 K/uL (130-400) 06/06/17 06:45 MPV 10.2 fL (7.2-11.7) 06/06/17 06:45 Neut % (Auto) 37.8 % (50.0-75.0) L 06/06/17 06:45 Lymph % (Auto) 35.3 % (20.0-40.0) 06/06/17 06:45 [place] % (Auto) 12.8 % (0.0-10.0) H 06/06/17 06:45 Eos % (Auto) 13.2 % (0.0-4.0) H 06/06/17 06:45 Baso % (Auto) 0.9 % (0.0-2.0) 06/06/17 06:45 Neut # (Auto) 1.7 K/uL (1.8-7.0) L 06/06/17 06:45 Lymph # (Auto) 1.5 K/uL (1.0-4.3) 06/06/17 06:45 [place] # (Auto) 0.6 K/uL (0.0-0.8) 06/06/17 06:45 Eos # (Auto) 0.6 K/uL (0.0-0.7) 06/06/17 06:45 Baso # (Auto) 0.0 K/uL (0.0-0.2) 06/06/17 06:45 Neutrophils % (Manual) 72 % (50-75) 06/02/17 14:30 Band Neutrophils % 12 % (0-2) H* 06/02/17 14:30 Lymphocytes % (Manual) 7 % (20-40) L 06/02/17 14:30 Monocytes % (Manual) 5 % (0-10) 06/02/17 14:30 Eosinophils % (Manual) 3 % (0-4) 06/02/17 14:30 Basophils % (Manual) 1 % (0-2) 06/02/17 14:30 Platelet Estimate Normal (NORMAL) 06/02/17 14:30 Large Platelets Present 06/02/17 14:30 Hypochromasia (manual) Slight 06/02/17 14:30 Poikilocytosis (manual Slight 06/02/17 14:30 Anisocytosis (manual) Slight 06/02/17 14:30 Retic Count 0.7 % (0.5-1.5) 06/04/17 08:00 Haptoglobin 305.0 mg/dL (30.0-200.0) H 06/04/17 08:00 Puncture Site Lr 06/02/17 19:13 pCO2 26 mm/Hg (35-45) L 06/02/17 19:13 pO2 24 mm/Hg (30-55) L 06/02/17 22:46 HCO3 23.9 mmol/L (21-28) 06/02/17 19:13 ABG pH 7.50 (7.35-7.45) H 06/02/17 19:13 ABG Total CO2 21.1 mmol/L (22-28) L 06/02/17 19:13 ABG O2 Saturation 99.6 % (95-98) H 06/02/17 19:13 ABG Base Excess -1.4 mmol/L (-2.0-3.0) 06/02/17 19:13 Farrukh Test Po 06/02/17 19:13 ABG Potassium 3.0 mmol/L (3.6-5.2) L 06/02/17 19:13 VBG pH 7.36 (7.32-7.43) 06/02/17 22:46 VBG pCO2 34 mmHg (40-60) L 06/02/17 22:46 VBG HCO3 19.1 mmol/L 06/02/17 22:46 VBG Total CO2 20.2 mmol/L (22-28) L 06/02/17 22:46 VBG O2 Sat (Calc) 44.6 % (40-65) 06/02/17 22:46 VBG Base Excess -5.4 mmol/L (0.0-2.0) L 06/02/17 22:46 VBG Potassium 2.4 mmol/L (3.6-5.2) L* 06/02/17 22:46 A-a O2 Difference 90.0 mm/Hg 06/02/17 19:13 Respiratory Index 0.8 06/02/17 19:13 Sodium 155.0 mmol/l (132-148) H 06/02/17 22:46 Chloride 115.0 mmol/L (98-107) H 06/02/17 22:46 Glucose 71 mg/dl (65-105) 06/02/17 22:46 Lactate 0.6 mmol/L (0.7-2.1) L 06/02/17 22:46 Liter Flow 3.0 06/02/17 19:13 FiO2 32.0 % 06/02/17 19:13 Crit Value Called To Dr zuniga 06/02/17 22:46 Crit Value Called By Miguel murray 06/02/17 22:46 Crit Value Read Back Y 06/02/17 22:46 Blood Gas Notified Time 2250 18 22:46 Sodium 141 mmol/L (132-148) 06/06/17 06:45 Potassium 3.8 mmol/L (3.6-5.2) 06/06/17 06:45 Chloride 103 mmol/L (98-107) 06/06/17 06:45 Carbon Dioxide 25 mmol/L (22-30) 06/06/17 06:45 Anion Gap 17 (10-20) 06/06/17 06:45 BUN 11 mg/dL (7-17) 06/06/17 06:45 Creatinine 0.7 mg/dL (0.7-1.2) 06/06/17 06:45 Est GFR ( Amer) > 60 06/06/17 06:45 Est GFR (Non-Af Amer) > 60 06/06/17 06:45 POC Glucose (mg/dL) 75 mg/dL (65-110) 06/05/17 06:12 Random Glucose 83 mg/dL (65-105) 06/06/17 06:45 Hemoglobin A1c 5.8 % (4.2-6.5) 06/03/17 07:20 Calcium 8.5 mg/dl (8.6-10.4) L 06/06/17 06:45 Phosphorus 4.1 mg/dL (2.5-4.5) 06/06/17 06:45 Magnesium 1.9 mg/dL (1.6-2.3) 06/06/17 06:45 Iron 10 ug/dL (37-170) L 06/03/17 19:32 TIBC 299 ug/dL (250-450) 06/03/17 19:32 % Saturation 3 (20-55) L 06/03/17 19:32 Ferritin 56.7 ng/mL 06/04/17 08:00 Total Bilirubin 0.7 mg/dL (0.2-1.3) 06/06/17 06:45 AST 39 U/L (14-36) H 06/06/17 06:45 ALT 31 U/L (9-52) 06/06/17 06:45 Alkaline Phosphatase 65 U/L (38-126) 06/06/17 06:45 Total Creatine Kinase 121 U/L (30-135) 06/03/17 02:51 CK-MB (Mass) 3.24 ng/mL (0.0-3.38) 06/03/17 02:51 Troponin I 0.0770 ng/mL (0.00-0.120) 06/03/17 02:51 NT-Pro-B Natriuret Pep 1060 pg/mL (0-450) H 06/04/17 08:00 Total Protein 7.0 g/dL (6.3-8.3) 06/06/17 06:45 Albumin 3.8 g/dL (3.5-5.0) 06/06/17 06:45 Globulin 3.2 gm/dL (2.2-3.9) 06/06/17 06:45 Albumin/Globulin Ratio 1.2 (1.0-2.1) 06/06/17 06:45 Triglycerides 53 mg/dL (0-149) 06/03/17 07:20 Cholesterol 117 mg/dL (0-199) 06/03/17 07:20 LDL Cholesterol Direct 63 mg/dL (0-129) 06/03/17 07:20 HDL Cholesterol 39 mg/dL (30-70) 06/03/17 07:20 Vitamin B12 399 pg/mL (239-931) 06/04/17 08:00 Folate > 20.0 ng/mL 06/04/17 08:00 Procalcitonin 0.05 NG/ML (0.19-0.49) L 06/03/17 07:20 Free T4 1.21 ng/dL (0.78-2.19) 06/03/17 07:20 TSH 3rd Generation 0.91 mIU/L (0.46-4.68) 06/03/17 07:20 Arterial Blood Potassium 3.0 mmol/L (3.6-5.2) L 06/02/17 19:13 Venous Blood Potassium 2.4 mmol/L (3.6-5.2) L* 06/02/17 22:46 Urine Color Straw (YELLOW) 06/02/17 15:37 Urine Clarity Hazy (Clear) 06/02/17 15:37 Urine pH 5.0 (5.0-8.0) 06/02/17 15:37 Ur Specific [place] 1.012 (1.003-1.030) 06/02/17 15:37 Urine Protein Negative mg/dL (NEGATIVE) 06/02/17 15:37 Urine Glucose (UA) Normal mg/dL (Normal) 06/02/17 15:37 Urine Ketones Negative mg/dL (NEGATIVE) 06/02/17 15:37 Urine Blood 1+ (NEGATIVE) H 06/02/17 15:37 Urine Nitrate Negative (NEGATIVE) 06/02/17 15:37 Urine Bilirubin Negative (NEGATIVE) 06/02/17 15:37 Urine Urobilinogen Normal mg/dL (0.2-1.0) 06/02/17 15:37 Ur Leukocyte Esterase 2+ Chasidy/uL (Negative) H 06/02/17 15:37 Urine WBC (Auto) 13 /hpf (0-5) H 06/02/17 15:37 Urine RBC (Auto) 2 /hpf (0-3) 06/02/17 15:37 Ur Squamous Epith Cells 6 /hpf (0-5) H 06/02/17 15:37 Urine Bacteria Rare (<OCC) 06/02/17 15:37 Urine HCG, Qual Negative (NEGATIVE) 06/02/17 15:37 Vancomycin Trough 9.5 ug/mL (5.0-10.0) 06/04/17 08:06 Influenza Typ A,B (EIA) Pos for influenza a (NEGATIVE) H 06/02/17 13:50 H.influenzae Type B Ag Cancelled 06/03/17 20:16 Ur L.pneumophila Ag Negative (NEGATIVE) 06/03/17 20:16 Mycoplasma pneumon IgM Negative (NEGATIVE) 06/04/17 08:00 N.meningitidis ACY/W135 Cancelled 06/03/17 20:16 N.meningi B/E.coli K1 Ag Cancelled 06/03/17 20:16 Anti-Staphylolysin O Negative (NEGATIVE) 06/04/17 15:59 Group B Strep Antigen Cancelled 06/03/17 20:16 S. pneumoniae Antigen Cancelled 06/03/17 20:16 - Hospital Course Hospital Course: HPI This is a 42 year old female with PMHx cardiomegaly s/p 10 years ago who presents with fevers, malaise, and shortness of breath. Patient states that this began yesterday as she was picking up her daughter from school. At the time , she just felt unwell. However, at 1 AM this morning, the patient woke up with fever, sore throat, and shortness of breath. Patient tried using an albuterol inhaler once without any relief. Patient has also tried Motrin without relief of fever. Patient complaining of diaphoresis as well. Patient is able to walk 5 blocks before getting short of breath and sleeps with 2 pillows at night. Of note, patient's was sick early this week with similar symptoms. Patient did not get the flu shot this year. During Hospital Stay Patient had EKGs during her stay, cxr showed cardiomegaly. BNP was found to be 2550 on admission for which patient was given Lasix. Cardiology Consult Dr. Byrd and Critical Care Consult, Dr. Aguirre were consulted. Patient was determined to be stable and sent to the med/surge floors. CT chest showed pulmonary edema with masslike density in medial aspect of right middle lobe which may represent chronic atelectasis. Dr. Baez (ID) was consulted, patient placed on Vancomycin and Zosyn to cover for pneumonia. Patient also tested positive for influenza for which she was placed on tamiflu and on droplet precautions for the remainder of her stay. Patient had a cough which was treated with antibiotics and duonebs. Echo was ordered which showed Mild concentric left ventricular hypertrophy, normal Left ventricular function. Left ventricular EF is within normal range. LV filling pressure is mildly increased. intracavitary gradient is suspected. could be contamination from MR. mild aortic regurg. mitral regurgitant jet is posteriorly detected: suggesting anterior leaflet pathology. exaggerated left ventricular wall motion and enlarged left atrium: significant mitral regurg. mild tricuspid regurg. right ventricular systolic pressure 30-40mmHg. mild pulmonic valvular regurg. Per Dr. Byrd: Echo shows that the patient has thickening and prolapse of the anterior leaflet of the mitral valve. This contributes to the patient's systolic murmur. The patient will follow up with me as outpatient for reevaluation of mitral valve. Patient to Follow up with Dr. Byrd for possible CHANDRAKANT. Discharge Medications Cefpodoxime 200 mg, 1 tablet by mouth 2x/day (breakfast and dinner) for the next 6 days until finished Oseltamivir 75 mg, 1 tablet by mouth tonight with dinner and tomorrow with breakfast and dinner Albuterol 90 mcg/actuation, 2 puffs by mouth every 6 hours ONLY as needed for shortness of breath and/or wheezing Patient discharged with instructions to be provided to patient in [place]er: 1). Schedule follow up with your Primary Care Physician Dr. Anderson. This follow up should take place in the next 7 days. 2). Schedule follow up with [employer] Dr. Beni Byrd by calling his office at [phone]. Through Dr. Byrd' office you will need to have ultrasound done of your heart arranged. This follow up should take place in the next 14 days. 3). Schedule follow up with Lung Physician Dr. Bhavna Cook by calling his office at [phone]. Through Dr. Cook's office you will need to have your lung volumes measured. This follow up should take place in the next 14 days. 4). You will need to have a repeat Chest X Ray done in 8 weeks to make sure that your pneumonia has been treated. You can have this done through Dr. Anderson' s office. 5). You were provided with prescriptions for the following medications. These are the ONLY medications that you should be taking for now. Please have them filled at your pharmacy on the way home from the hospital: Cefpodoxime 200 mg, 1 tablet by mouth 2x/day (breakfast and dinner) for the next 6 days until finished Oseltamivir 75 mg, 1 tablet by mouth tonight with dinner and tomorrow with breakfast and dinner Albuterol 90 mcg/actuation, 2 puffs by mouth every 6 hours ONLY as needed for shortness of breath and/or wheezing 6). You will need to have further workup for your Anemia. Please make sure that you obtain referral for Production Support Consultant through your Primary Care Physician Dr. Anderson. 7). Please make sure that you are having a low sugar and high protein yogurt containing active and live cultures with lunch for the next 36 days. You can ask someone in the dairy department at your grocery store to help you find this. This yogurt will help you to keep the good bacteria in your colon. 8). Please make sure that you follow the above instructions. Failure to do so will have serious consequences to your health. 9). Please bring a copy of these instructions with you to your follow up appointments with Dr. Anderson, Dr. Byrd, and Dr. Cook. 10). Please take care and be well. - Date & Time of H&P Date of H&P: 06/06/17 Time of H&P: 10:54 Discharge Exam - Head Exam Head Exam: NORMAL INSPECTION - Cardiovascular Exam Cardiovascular Exam: REGULAR RHYTHM, +S1, +S2, Systolic Murmur. absent: Bradycardia, Tachycardia - GI/Abdominal Exam GI & Abdominal Exam: Normal Bowel Sounds, Soft. absent: Tenderness, Unremarkable - Extremities Exam Extremities exam: full ROM, normal inspection - Back Exam Back exam: FULL ROM, NORMAL INSPECTION. absent: CVA tenderness (L), CVA tenderness (R), paraspinal tenderness - Neurological Exam Neurological exam: Alert, CN II-XII Intact, Normal Gait, Oriented x3 - Psychiatric Exam Psychiatric exam: Normal Affect, Normal Mood - Skin Skin Exam: Dry, Intact, Normal Color, Warm Discharge Plan - Discharge Medications Prescriptions: Albuterol HFA [Ventolin HFA 90 mcg/actuation (8 g)] 2 puff IH [id number] #1 puff Cefpodoxime [Vantin] 200 mg PO BID #12 tab Oseltamivir [Tamiflu Cap] 75 mg PO BID #3 cap - Follow Up Plan Condition: GUARDED Disposition: HOME/ ROUTINE Instructions: Mitral Regurgitation, Flu, Adult (DC), Albuterol, Cefpodoxime, Oseltamivir Additional Instructions: The following instructions will need to be provided to patient in [place]: 1). Schedule follow up with your Primary Care Physician Dr. Anderson. This follow up should take place in the next 7 days. 2). Schedule follow up with [employer] Dr. Beni Byrd by calling his office at [phone]. Through Dr. Byrd' office you will need to have ultrasound done of your heart arranged. This follow up should take place in the next 14 days. 3). Schedule follow up with Lung Physician Dr. Bhavna Cook by calling his office at [phone]. Through Dr. Cook's office you will need to have your lung volumes measured. This follow up should take place in the next 14 days. 4). You will need to have a repeat Chest X Ray done in 8 weeks to make sure that your pneumonia has been treated. You can have this done through Dr. Anderson' s office. 5). You were provided with prescriptions for the following medications. These are the ONLY medications that you should be taking for now. Please have them filled at your pharmacy on the way home from the hospital: Cefpodoxime 200 mg, 1 tablet by mouth 2x/day (breakfast and dinner) for the next 6 days until finished Oseltamivir 75 mg, 1 tablet by mouth tonight with dinner and tomorrow with breakfast and dinner Albuterol 90 mcg/actuation, 2 puffs by mouth every 6 hours ONLY as needed for shortness of breath and/or wheezing 6). You will need to have further workup for your Anemia. Please make sure that you obtain referral for Production Support Consultant through your Primary Care Physician Dr. Anderson. 7). Please make sure that you are having a low sugar and high protein yogurt containing active and live cultures with lunch for the next 36 days. You can ask someone in the dairy department at your grocery store to help you find this. This yogurt will help you to keep the good bacteria in your colon. 8). Please make sure that you follow the above instructions. Failure to do so will have serious consequences to your health. 9). Please bring a copy of these instructions with you to your follow up appointments with Dr. Anderson, Dr. Byrd, and Dr. Cook. 10). Please take care and be well. Referrals: Merna Byrd MD [Staff Provider] - Steven Cook MD [Staff Provider] - <Lamont Watson - Last Filed: 06/06/17 18:34> Provider - Provider Date of Admission: 06/02/17 18:50 Attending physician: Lamont Watson MD Time Spent in preparation of Discharge (in minutes): 40 Hospital Course - Lab Results Lab Results: Micro Results 06/02/17 15:30 Blood Blood Culture - Preliminary NO GROWTH AFTER 3 DAYS 06/02/17 15:00 Blood Blood Culture - Preliminary NO GROWTH AFTER 3 DAYS 06/02/17 Unknown Urine Urine Culture - Final No Growth (<1,000 CFU/ML) Most Recent Lab Values WBC 4.4 K/uL (4.8-10.8) L 06/06/17 06:45 RBC 4.13 Mil/uL (3.80-5.20) 06/06/17 06:45 Hgb 10.6 g/dL (11.0-16.0) L 06/06/17 06:45 Hct 32.4 % (34.0-47.0) L 06/06/17 06:45 MCV 78.5 fL (81.0-99.0) L 06/06/17 06:45 MCH 25.6 pg (27.0-31.0) L 06/06/17 06:45 MCHC 32.7 g/dL (33.0-37.0) L 06/06/17 06:45 RDW 14.1 % (11.5-14.5) 06/06/17 06:45 Plt Count 184 K/uL (130-400) 06/06/17 06:45 MPV 10.2 fL (7.2-11.7) 06/06/17 06:45 Neut % (Auto) 37.8 % (50.0-75.0) L 06/06/17 06:45 Lymph % (Auto) 35.3 % (20.0-40.0) 06/06/17 06:45 [place] % (Auto) 12.8 % (0.0-10.0) H 06/06/17 06:45 Eos % (Auto) 13.2 % (0.0-4.0) H 06/06/17 06:45 Baso % (Auto) 0.9 % (0.0-2.0) 06/06/17 06:45 Neut # (Auto) 1.7 K/uL (1.8-7.0) L 06/06/17 06:45 Lymph # (Auto) 1.5 K/uL (1.0-4.3) 06/06/17 06:45 [place] # (Auto) 0.6 K/uL (0.0-0.8) 06/06/17 06:45 Eos # (Auto) 0.6 K/uL (0.0-0.7) 06/06/17 06:45 Baso # (Auto) 0.0 K/uL (0.0-0.2) 06/06/17 06:45 Neutrophils % (Manual) 72 % (50-75) 06/02/17 14:30 Band Neutrophils % 12 % (0-2) H* 06/02/17 14:30 Lymphocytes % (Manual) 7 % (20-40) L 06/02/17 14:30 Monocytes % (Manual) 5 % (0-10) 06/02/17 14:30 Eosinophils % (Manual) 3 % (0-4) 06/02/17 14:30 Basophils % (Manual) 1 % (0-2) 06/02/17 14:30 Platelet Estimate Normal (NORMAL) 06/02/17 14:30 Large Platelets Present 06/02/17 14:30 Hypochromasia (manual) Slight 06/02/17 14:30 Poikilocytosis (manual Slight 06/02/17 14:30 Anisocytosis (manual) Slight 06/02/17 14:30 Retic Count 0.7 % (0.5-1.5) 06/04/17 08:00 Haptoglobin 305.0 mg/dL (30.0-200.0) H 06/04/17 08:00 Puncture Site Lr 06/02/17 19:13 pCO2 26 mm/Hg (35-45) L 06/02/17 19:13 pO2 24 mm/Hg (30-55) L 06/02/17 22:46 HCO3 23.9 mmol/L (21-28) 06/02/17 19:13 ABG pH 7.50 (7.35-7.45) H 06/02/17 19:13 ABG Total CO2 21.1 mmol/L (22-28) L 06/02/17 19:13 ABG O2 Saturation 99.6 % (95-98) H 06/02/17 19:13 ABG Base Excess -1.4 mmol/L (-2.0-3.0) 06/02/17 19:13 Farrukh Test Po 06/02/17 19:13 ABG Potassium 3.0 mmol/L (3.6-5.2) L 06/02/17 19:13 VBG pH 7.36 (7.32-7.43) 06/02/17 22:46 VBG pCO2 34 mmHg (40-60) L 06/02/17 22:46 VBG HCO3 19.1 mmol/L 06/02/17 22:46 VBG Total CO2 20.2 mmol/L (22-28) L 06/02/17 22:46 VBG O2 Sat (Calc) 44.6 % (40-65) 06/02/17 22:46 VBG Base Excess -5.4 mmol/L (0.0-2.0) L 06/02/17 22:46 VBG Potassium 2.4 mmol/L (3.6-5.2) L* 06/02/17 22:46 A-a O2 Difference 90.0 mm/Hg 06/02/17 19:13 Respiratory Index 0.8 06/02/17 19:13 Sodium 155.0 mmol/l (132-148) H 06/02/17 22:46 Chloride 115.0 mmol/L (98-107) H 06/02/17 22:46 Glucose 71 mg/dl (65-105) 06/02/17 22:46 Lactate 0.6 mmol/L (0.7-2.1) L 06/02/17 22:46 Liter Flow 3.0 06/02/17 19:13 FiO2 32.0 % 06/02/17 19:13 Crit Value Called To Dr zuniga 06/02/17 22:46 Crit Value Called By Miguel murray 06/02/17 22:46 Crit Value Read Back Y 06/02/17 22:46 Blood Gas Notified Time 2250 06/02/17 22:46 Sodium 141 mmol/L (132-148) 06/06/17 06:45 Potassium 3.8 mmol/L (3.6-5.2) 06/06/17 06:45 Chloride 103 mmol/L (98-107) 06/06/17 06:45 Carbon Dioxide 25 mmol/L (22-30) 06/06/17 06:45 Anion Gap 17 (10-20) 06/06/17 06:45 BUN 11 mg/dL (7-17) 06/06/17 06:45 Creatinine 0.7 mg/dL (0.7-1.2) 06/06/17 06:45 Est GFR ( Amer) > 60 06/06/17 06:45 Est GFR (Non-Af Amer) > 60 06/06/17 06:45 POC Glucose (mg/dL) 75 mg/dL (65-110) 06/05/17 06:12 Random Glucose 83 mg/dL (65-105) 06/06/17 06:45 Hemoglobin A1c 5.8 % (4.2-6.5) 06/03/17 07:20 Calcium 8.5 mg/dl (8.6-10.4) L 06/06/17 06:45 Phosphorus 4.1 mg/dL (2.5-4.5) 06/06/17 06:45 Magnesium 1.9 mg/dL (1.6-2.3) 06/06/17 06:45 Iron 10 ug/dL (37-170) L 06/03/17 19:32 TIBC 299 ug/dL (250-450) 06/03/17 19:32 % Saturation 3 (20-55) L 06/03/17 19:32 Ferritin 56.7 ng/mL 06/04/17 08:00 Total Bilirubin 0.7 mg/dL (0.2-1.3) 06/06/17 06:45 AST 39 U/L (14-36) H 06/06/17 06:45 ALT 31 U/L (9-52) 06/06/17 06:45 Alkaline Phosphatase 65 U/L (38-126) 06/06/17 06:45 Total Creatine Kinase 121 U/L (30-135) 06/03/17 02:51 CK-MB (Mass) 3.24 ng/mL (0.0-3.38) 06/03/17 02:51 Troponin I 0.0770 ng/mL (0.00-0.120) 06/03/17 02:51 NT-Pro-B Natriuret Pep 1060 pg/mL (0-450) H 06/04/17 08:00 Total Protein 7.0 g/dL (6.3-8.3) 06/06/17 06:45 Albumin 3.8 g/dL (3.5-5.0) 06/06/17 06:45 Globulin 3.2 gm/dL (2.2-3.9) 06/06/17 06:45 Albumin/Globulin Ratio 1.2 (1.0-2.1) 06/06/17 06:45 Triglycerides 53 mg/dL (0-149) 06/03/17 07:20 Cholesterol 117 mg/dL (0-199) 06/03/17 07:20 LDL Cholesterol Direct 63 mg/dL (0-129) 06/03/17 07:20 HDL Cholesterol 39 mg/dL (30-70) 06/03/17 07:20 Vitamin B12 399 pg/mL (239-931) 06/04/17 08:00 Folate > 20.0 ng/mL 06/04/17 08:00 Procalcitonin 0.05 NG/ML (0.19-0.49) L 06/03/17 07:20 Free T4 1.21 ng/dL (0.78-2.19) 06/03/17 07:20 TSH 3rd Generation 0.91 mIU/L (0.46-4.68) 06/03/17 07:20 Arterial Blood Potassium 3.0 mmol/L (3.6-5.2) L 06/02/17 19:13 Venous Blood Potassium 2.4 mmol/L (3.6-5.2) L* 06/02/17 22:46 Urine Color Straw (YELLOW) 06/02/17 15:37 Urine Clarity Hazy (Clear) 06/02/17 15:37 Urine pH 5.0 (5.0-8.0) 06/02/17 15:37 Ur Specific [place] 1.012 (1.003-1.030) 06/02/17 15:37 Urine Protein Negative mg/dL (NEGATIVE) 06/02/17 15:37 Urine Glucose (UA) Normal mg/dL (Normal) 06/02/17 15:37 Urine Ketones Negative mg/dL (NEGATIVE) 06/02/17 15:37 Urine Blood 1+ (NEGATIVE) H 06/02/17 15:37 Urine Nitrate Negative (NEGATIVE) 06/02/17 15:37 Urine Bilirubin Negative (NEGATIVE) 06/02/17 15:37 Urine Urobilinogen Normal mg/dL (0.2-1.0) 06/02/17 15:37 Ur Leukocyte Esterase 2+ Chasidy/uL (Negative) H 06/02/17 15:37 Urine WBC (Auto) 13 /hpf (0-5) H 06/02/17 15:37 Urine RBC (Auto) 2 /hpf (0-3) 06/02/17 15:37 Ur Squamous Epith Cells 6 /hpf (0-5) H 06/02/17 15:37 Urine Bacteria Rare (<OCC) 06/02/17 15:37 Urine HCG, Qual Negative (NEGATIVE) 06/02/17 15:37 Vancomycin Trough 9.5 ug/mL (5.0-10.0) 06/04/17 08:06 Influenza Typ A,B (EIA) Pos for influenza a (NEGATIVE) H 06/02/17 13:50 H.influenzae Type B Ag Cancelled 06/03/17 20:16 Ur L.pneumophila Ag Negative (NEGATIVE) 06/03/17 20:16 Mycoplasma pneumon IgM Negative (NEGATIVE) 06/04/17 08:00 N.meningitidis ACY/W135 Cancelled 06/03/17 20:16 N.meningi B/E.coli K1 Ag Cancelled 06/03/17 20:16 Anti-Staphylolysin O Negative (NEGATIVE) 06/04/17 15:59 Group B Strep Antigen Cancelled 06/03/17 20:16 S. pneumoniae Antigen Cancelled 06/03/17 20:16 Attending/Attestation - Attestation I have personally seen and examined this patient.: Yes I have fully participated in the care of the patient.: Yes I have reviewed all pertinent clinical information, including history, physical exam and plan: Yes
[2017-06-07] MEDS ORDERED: Pneumococcal 23-Valent Vaccine IM ONE (10:00)
== END 2017-06-06 14:09 | disposition home or self-care (01) | DRG 194 ==
LOC: C.ER 12:59 → C.9E 18:50 → C.6T 22:17
PROVIDERS: ADMIT Family Medicine; ATTEND Family Medicine
DX: J10.00 Influenza due to other identified influenza virus with unspecified type of pneumonia (principal); J98.11 Atelectasis; I42.9 Cardiomyopathy, unspecified; N39.0 Urinary tract infection, site not specified; Z68.42 Body mass index [BMI] 45.0-49.9, adult; J81.1 Chronic pulmonary edema; J10.1 Influenza due to other identified influenza virus with other respiratory manifestations; I27.20 Pulmonary hypertension, unspecified; I11.0 Hypertensive heart disease with heart failure; I37.1 Nonrheumatic pulmonary valve insufficiency; D64.9 Anemia, unspecified; I50.9 Heart failure, unspecified; J40 Bronchitis, not specified as acute or chronic; J45.909 Unspecified asthma, uncomplicated; E66.01 Morbid (severe) obesity due to excess calories